=== PATIENT | male | born 1935 | race Caucasian/White ===

== ENCOUNTER 2017-04-22 13:51 | Inpatient (IN) | payer OTHER, MEDICAID, MEDICARE ==
[~2017-04-22] VITALS: Ht 182.9 cm; Wt 75.0 kg
[2017-04-22 13:58] VITALS: BP 146/72; PULSE 115; RESP 18; TEMP 98.2; O2SAT 98
[2017-04-22] MEDS ORDERED: SODIUM CHLOR 0.9% 1000 ML INJ 1,000 ML IV SCH (14:05)
[2017-04-22] MEDS ORDERED: MORPHINE SULFATE 4 MG/ML INJ IV PUSH ONE (14:15)
[2017-04-22] MEDS ORDERED: ONDANSETRON HCL 4 MG/2 ML VIAL IVP ONE (14:15)
[2017-04-22] MEDS ORDERED: DOCU100C PO (14:19)
[2017-04-22] MEDS ORDERED: AMLO5TAB2 PO (14:19)
[2017-04-22] MEDS ORDERED: CILO100T PO (14:19)
[2017-04-22] MEDS ORDERED: LEVE500S PO (14:19)
[2017-04-22] MEDS ORDERED: OMEP40CA2 PO (14:19)
[2017-04-22] MEDS ORDERED: CHOL1TAB42 (14:19)
[2017-04-22] MEDS ORDERED: ZINC220C3 PO (14:19)
[2017-04-22] MEDS ORDERED: GLIP10TA6 PO ×2 (14:19→15:01)
[2017-04-22] MEDS ORDERED: SITA1TAB2 PO (14:19)
[2017-04-22] MEDS ORDERED: FINA5TAB2 PO (14:19)
[2017-04-22] MEDS ORDERED: THIA500T PO (14:19)
[2017-04-22] MEDS ORDERED: LEVO750T3 PO (14:19)
[2017-04-22] MEDS ORDERED: LOVA40TA PO (14:19)
--- NOTE | 2017-04-22 14:24 | PD ---
HPI Chief Complaint: GI Complaint Time Seen by Provider: 14:16 Travel History International Travel<30 days: No Contact w/Intl Traveler<30days: No Traveled to known affect area: No History of Present Illness HPI 81-year-old male that presents to the ED for evaluation of fever, nausea and diarrhea. Also abdominal pain. Patient comes here from a care home. Patient apparently was released from [facility] for a month earlier this month to an ALS secondary to subarachnoid hemorrhage and a right hip fracture that needed surgery. Patient since yesterday has been acting different per staff and they noticed that he had a low-grade fever as well as he was having a lot of nausea and vomiting and diarrhea. Patient was complaining of abdominal pain at the time. He was sent here for evaluation. He denies any recent falls or injuries. He denies significant blood thinners. He does have a history of diabetes. Patient does appear to be aware of the situation and is able to give him most of the history. He has a history of the ulcer to his left heel as well as possibly on his sacral area. Per her report apparently patient does have difficulty swallowing secondary to the trauma but this is chronic. Per his been throwing up which is new. He states that his pain currently 6 out of 10 mainly on the abdomen in the hip. Denies any recent falls or trauma. No other complaints at this time. He does appear to be tachycardic and he was found to have a low-grade fever by ambulance. Patient comes here also with blood work that was recently performed that showed a leukocytosis. PFSH Past Medical History Alzheimer's Disease: Yes Musculoskeletal: Yes (right hip fracture) Neurologic: Yes (subdural hematoma) Social History Alcohol Use: No Tobacco Use: No Substance Use: No Allergies-Medications (Allergen,Severity, Reaction): Coded Allergies: Penicillin (Verified Allergy, Intermediate, RASH, 04/22/17) Reported Meds & Prescriptions Reported Meds & Active Scripts Active Reported Zofran (Ondansetron HCl) 4 Mg Tab 4 Mg PO Q4HR PRN Percocet (Oxycodone-Acetaminophen) 5-325 mg Tab 1 Tab PO Q4H PRN Milk of Magnesia Liq (Magnesium Hydroxide) 400 Mg/5 Ml Susp 30 Ml PO HS PRN Hydralazine HCl 10 Mg Tablet 10 Mg PO Q6HR PRN Enema Disposable (Sodium Phosphates) 1 Gia Gia 1 Applic RECTAL DAILY PRN Dulcolax Supp (Bisacodyl) 10 Mg Supp 10 Mg RECTAL DAILY PRN Guaifenesin DM Liq (Guaifenesin-Dextromethorphan Liq) 10-100 Mg/5 Ml Liq 10 Ml PO Q4H PRN Citroma Liq (Magnesium Citrate) 300 Ml Liq 300 Ml PO DAILY PRN Tylenol (Acetaminophen) 325 Mg Tab 650 Mg PO Q4H PRN Humalog Inj (Insulin Human Lispro) 1,000 Unit/10 Ml Vial 3-12 Units SQ ACHS Sliding Scale: 61-150=0 units, initiate hypoglycemic protocol and call MD, 151-200=3 units, 201-250=5 units, 251-300=8 units, 301-350=10 units, 351-400=12 units, > 400 give 10 units and call Metformin (Metformin HCl) 500 Mg Tab 500 Mg PO TID With meals [Folic Acid 1MG] 1 Mg PO TID Ferrous Sulfate DR (Ferrous Sulfate) 325 Mg Tabdr 325 Mg PO TID Vitamin C (Ascorbic Acid) 250 Mg Tab 500 Mg PO BID Lopid (Gemfibrozil) 600 Mg Tab 600 Mg PO BID Take 30 minutes prior to breakfast and dinner Multi Vitamin Daily (Multiple Vitamin) 1 Tab Tab 1 Tab PO DAILY Glipizide 10 Mg Tab 20 Mg PO DAILY Dextrose 5%-NaCl 0.45% Inj (Dextrose-Sodium Chloride Inj) 5%-0.45% 1,000 Ml Bagp 1,000 Ml IV DAILY Vitamin D3 (Cholecalciferol) 5,000 Unit Cap 10,000 Units PO MONTHLY Docusate Sodium 100 Mg Cap 100 Mg PO Q12HR Cilostazol 100 Mg Tab 100 Mg PO BID Zinc Sulfate 220 Mg Cap 220 Mg PO DAILY Thiamine HCl 500 Mg Tablet 500 Mg PO DAILY Januvia (Sitagliptin Phosphate) 100 Mg Tab 100 Mg PO DAILY Omeprazole 40 Mg Cap 40 Mg PO DAILY Lovastatin 40 Mg Tab 40 Mg PO HS Levofloxacin 750 Mg Tablet 750 Mg PO WEEKLY Glipizide 10 Mg Tab 10 Mg PO HS Finasteride 5 Mg Tab 5 Mg PO DAILY Do not crush. Amlodipine (Amlodipine Besylate) 5 Mg Tab 5 Mg PO DAILY Review of Systems Except as stated in HPI: all other systems reviewed are Neg Physical Exam Narrative GENERAL: SKIN: Warm and dry. HEAD: Atraumatic. Normocephalic. EYES: Pupils equal and round 4 mm reactive to light and accommodation. No scleral icterus. No injection or drainage. ENT: No nasal bleeding or discharge. Mucous membranes pink and moist. Tongue is midline. No uvula deviation. NECK: Trachea midline. No JVD. CARDIOVASCULAR: Regular rate and rhythm. No murmurs, S3, S4. RESPIRATORY: No accessory muscle use. Clear to auscultation. Breath sounds equal bilaterally. GASTROINTESTINAL: Abdomen soft, non-tender, nondistended. Hepatic and splenic margins not palpable. MUSCULOSKELETAL: Extremities without clubbing, cyanosis, or edema. No obvious deformities. Full range of motion of the upper and lower extremities bilaterally. Patient does have some atrophy to the lower legs which appears to be chronic. Patient does have a stage II healing decubitus ulcer on the left heel about 2 cm in diameter. Patient does have some break of the skin on the sacral area which appears likely that the comatose ulcers stage I. Patient does have surgical emile on the right hip with some erythema around the wound but no sign of purulence or mass. NEUROLOGICAL: Awake and alert and oriented 4. No obvious cranial nerve deficits. Motor grossly within normal limits. Five out of 5 muscle strength in the arms and legs. Normal speech. PSYCHIATRIC: Appropriate mood and affect; insight and judgment normal. Data Data Last Documented VS Vital Signs Date Time Temp Pulse Resp B/P Pulse Ox O2 Delivery O2 Flow Rate FiO2 04/22/17 13:58 98.2 115 18 146/72 98 Orders Complete Blood Count With Diff (04/22/17 14:05) Comprehensive Metabolic Panel (04/22/17 14:05) Lipase (04/22/17 14:05) Prothrombin Time / Inr (Pt) (04/22/17 14:05) Act Partial Throm Time (Ptt) (04/22/17 14:05) Urinalysis - C+S If Indicated (04/22/17 14:05) Iv Access Insert/Monitor (04/22/17 14:05) Ecg Monitoring (04/22/17 14:05) Oximetry (04/22/17 14:05) Morphine Inj (Morphine Inj) (04/22/17 14:15) Ondansetron Inj (Zofran Inj) (04/22/17 14:15) Sodium Chlor 0.9% 1000 Ml Inj (Ns 1000 M (04/22/17 14:05) Electrocardiogram (04/22/17 14:05) Lactic Acid Sepsis Protocol (04/22/17 14:05) Blood Culture (04/22/17 14:05) Chest, Single Ap (04/22/17 14:05) C Diff Toxin Pcr (04/22/17 14:19) Vancomycin Inj (Vancomycin Inj) (04/22/17 15:00) Azithromycin Inj (Zithromax Inj) (04/22/17 15:00) Ct Brain W/O Iv Contrast(Rout) (04/22/17 ) Ct Abd/Pel W/O Iv Contrast (04/22/17 ) Sodium Chlor 0.9% 1000 Ml Inj (Ns 1000 M (04/22/17 15:39) Sodium Chlor 0.9% 1000 Ml Inj (Ns 1000 M (04/22/17 15:39) Labs Laboratory Tests Test 04/22/17 04/22/17 14:25 14:30 White Blood Count 21.3 TH/MM3 Red Blood Count 3.18 MIL/MM3 Hemoglobin 8.9 GM/DL Hematocrit 26.0 % Mean Corpuscular Volume 81.8 FL Mean Corpuscular Hemoglobin 28.0 PG Mean Corpuscular Hemoglobin 34.2 % Concent Red Cell Distribution Width 14.5 % Platelet Count 474 TH/MM3 Mean Platelet Volume 6.9 FL Neutrophils (%) (Auto) 84.5 % Lymphocytes (%) (Auto) 5.6 % Monocytes (%) (Auto) 8.0 % Eosinophils (%) (Auto) 1.5 % Basophils (%) (Auto) 0.4 % Neutrophils # (Auto) 18.0 TH/MM3 Lymphocytes # (Auto) 1.2 TH/MM3 Monocytes # (Auto) 1.7 TH/MM3 Eosinophils # (Auto) 0.3 TH/MM3 Basophils # (Auto) 0.1 TH/MM3 CBC Comment AUTO DIFF Differential Comment AUTO DIFF CONFIRMED Platelet Estimate HIGH Platelet Morphology Comment NORMAL Prothrombin Time 12.0 SEC Prothromb Time International 1.1 RATIO Ratio Activated Partial 32.8 SEC Thromboplast Time Sodium Level 144 MEQ/L Potassium Level 3.5 MEQ/L Chloride Level 102 MEQ/L Carbon Dioxide Level 27.0 MEQ/L Anion Gap 15 MEQ/L Blood Urea Nitrogen 36 MG/DL Creatinine 1.88 MG/DL Estimat Glomerular Filtration 35 ML/MIN Rate Random Glucose 52 MG/DL Calcium Level 9.8 MG/DL Total Bilirubin 0.2 MG/DL Aspartate Amino Transf 21 U/L (AST/SGOT) Alanine Aminotransferase 12 U/L (ALT/SGPT) Alkaline Phosphatase 200 U/L Total Protein 7.3 GM/DL Albumin 2.5 GM/DL Lipase 142 U/L Lactic Acid Level 3.0 mmol/L MDM Medical Decision Making Medical Screen Exam Complete: Yes Emergency Medical Condition: Yes Medical Record Reviewed: Yes Interpretation(s) CBC & BMP Diagram 04/22/17 14:25 LTS shows elevated alk phophotase of 200 Last Impressions Chest X-Ray 04/22/17 1405 Signed Impressions: Service Date/Time: Saturday, April 22, 2017 14:28 - CONCLUSION: Underinflated examination with bibasilar airspace opacity representing either atelectasis or mild consolidation. Vinh Lane MD Last Impressions Chest X-Ray 04/22/17 1405 Signed Impressions: Service Date/Time: Saturday, April 22, 2017 14:28 - CONCLUSION: Underinflated examination with bibasilar airspace opacity representing either atelectasis or mild consolidation. Vinh Lane MD Head CT 04/22/17 0000 Signed Impressions: Service Date/Time: Saturday, April 22, 2017 15:30 - CONCLUSION: 1. Subacute subdural hematoma involving the right posterior temporal region measuring 6 mm and the right frontal region measuring 5 mm. 2. Diffuse periventricular and subcortical white matter small vessel ischemic changes bilaterally. 3. Diffuse cerebral atrophy. 4. No acute hemorrhage, midline shift or significant mass effect. Jacoby Bazan MD Abdomen/Pelvis CT 04/22/17 0000 Signed Impressions: Service Date/Time: Saturday, April 22, 2017 15:33 - CONCLUSION: 1. There is mild dilatation of the small bowel suggesting small bowel ileus or partial small bowel obstruction. 2. Uncomplicated colonic diverticulosis. 3. Enlarged prostate. 4. Tiny calcifications within the right kidney consistent with nonobstructing calculi versus vascular calcifications. 5. 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 6. Chronic moderate compression deformity involving the T12 vertebral body. 7. Left adrenal nodule measuring 2.5 x 1.5 cm consistent with probable adrenal adenoma. 8. Hiatal hernia. Jacoby Bazan MD Differential Diagnosis Sepsis versus gastroenteritis versus C. difficile versus acute abdomen versus infected wound Narrative Course 81-year-old male that presents to the ED for evaluation of altered mental status and infection. Patient was properly examined and was found to have signs and symptoms which appear to be consistent with early sepsis. Labs and imaging were ordered. Wound itself from the right hip appears to be okay and do not see any sign of obvious cellulitis. He does have some erythema to the scar itself but I believe that this is likely from the healing process not really infections. He does not appear to be overly tender in the area. Patient is complaining of a lot of nausea and vomiting and diarrhea. No blood. At this time I recommend sepsis workup. Unfortunately patient was not seen here initially for the fracture and the subarachnoid hemorrhage. Patient was initially seen at [facility] or month earlier this month and released to the [facility]. Records will be obtained from [facility] to better evaluate who did the surgery and what else patient has. Labs and imaging shows elevated WBC count with left shift, possible consolidations, dehydration with acute kidney injury, sepsis. CT of the head did show what appears to be a subacute subdural hematoma which was noted on the patient's admission to [facility]. CT of the abdomen showed ileus versus partial small bowel obstruction. Chronic changes noted as well as with kidney stones. Case was discussed in my attending who agrees with plan. Patient will be admitted to the [facility] service secondary to his sepsis. I was able to obtain records from [facility] admission and he was admitted for the right hip surgery after had a fracture as well as a head injury. Patient was seen by Dr. Kaiser and did not for orthopedic surgery during his admission as well as Dr. Messina for neurosurgery with no surgeries to the head but surgeries to the right hip. Patient capable of moving the hip with minimal discomfort. Do not believe that hip is the source of the sepsis and this is likely more from the gastrointestinal disease as well as possible pneumonia. Patient was told this and agrees with plan. Patient will be admitted to the hospital. [facility] Dr. Masterson agrees to admission Procedures EKG Prior to Arrival: No Sepsis Criteria SIRS Criteria (2 or more): Heart rate over 90, WBC > 43512, < 4000 or > 10% bands Sepsis Criteria (SIRS+source): Infect source susp/known Severe Sepsis (+one): Lactate >2 Criteria Outcome: Meets severe sepsis criteria Diagnosis Primary Impression: Sepsis Qualified Code: A41.9 - Sepsis, due to unspecified organism Additional Impressions: Pneumonia Qualified Code: J18.9 - Pneumonia of both lower lobes due to infectious organism Partial small bowel obstruction Acute kidney injury Admitting Information Admitting Physician Requests: Admit Quan Messina April 22, 2017 14:24
--- NOTE | 2017-04-22 14:30 | RADRPT ---
EXAM DATE/TIME: 04/22/2017 14:28 [facility] COMPARISON: No previous studies available for comparison. INDICATIONS : Cough. MEDICAL HISTORY : None. SURGICAL HISTORY : None. ENCOUNTER: Initial ACUITY: 1 day PAIN SCORE: 0/10 LOCATION: Bilateral chest FINDINGS: Underinflated AP view of the chest demonstrates a normal-sized cardiac silhouette. There is mild biba silar opacity. No pleural effusion or pneumothorax is identified. Bones and soft tissues demonstrate no acute finding. CONCLUSION: Underinflated examination with bibasilar airspace opacity representing either atelectasis or mild con solidation. Vinh Lane MD on April 22, 2017 at 14:27 Board Certified Radiologist. This report was verified electronically.
[2017-04-22 14:48] LABS: BASOPHIL # 0.1 TH/MM3 (0-0.2); BASOPHIL % 0.4 % (0.0-2.0); EOSINOPHIL # 0.3 TH/MM3 (0-0.4); EOSINOPHIL % 1.5 % (0.0-4.0); LYMPH % 5.6 % (9.0-44.0); LYMPHOCYTE # 1.2 TH/MM3 (1.0-4.8); MEAN CELL VOLUME 81.8 FL (80.0-100.0); MEAN CORPUSCULAR HGB CONC 34.2 % (32.0-36.0); NEUT % 84.5 % (16.0-70.0); PLATELET COUNT 474 TH/MM3 (150-450); RED BLOOD COUNT 3.18 MIL/MM3 (4.50-5.90); RED CELL DISTRIBUTION WIDTH 14.5 % (11.6-17.2); WHITE BLOOD COUNT 21.3 TH/MM3 (4.0-11.0)
[2017-04-22 14:52] LABS: HEMO FLAGS AUTO DIFF
[2017-04-22] MEDS ORDERED: AZITHROMYCIN INJ 500 MG in SODIUM CHLOR 0.9% 250 ML INJ 250 ML IV ONE (15:00)
[2017-04-22] MEDS ORDERED: VANCOMYCIN INJ 1,000 MG in SODIUM CHLOR 0.9% 250 ML INJ 250 ML IV ONE (15:00)
[2017-04-22] MEDS ORDERED: HUMALOG SQ (15:01)
[2017-04-22] MEDS ORDERED: [UNRECOGNIZED DRUG - CODE] IV (15:01)
[2017-04-22] MEDS ORDERED: ENEMENE5 RECTAL (15:01)
[2017-04-22] MEDS ORDERED: METF500T PO (15:01)
[2017-04-22] MEDS ORDERED: DULC10SU3 RECTAL (15:01)
[2017-04-22] MEDS ORDERED: MILKSUS PO (15:01)
[2017-04-22] MEDS ORDERED: CHOL5000 PO (15:01)
[2017-04-22] MEDS ORDERED: FOLIC ACID 1MG PO (15:01)
[2017-04-22] MEDS ORDERED: GUAISYP7 PO (15:01)
[2017-04-22] MEDS ORDERED: CITRSOL4 PO (15:01)
[2017-04-22] MEDS ORDERED: MULT1TAB46 PO (15:01)
[2017-04-22] MEDS ORDERED: GEMF600 PO (15:01)
[2017-04-22] MEDS ORDERED: ZOFR4TAB PO (15:01)
[2017-04-22] MEDS ORDERED: TYLE325T PO (15:01)
[2017-04-22] MEDS ORDERED: FERR325T2 PO (15:01)
[2017-04-22] MEDS ORDERED: PERC5TAB12 PO (15:01)
[2017-04-22] MEDS ORDERED: HYDR-3798 PO (15:01)
[2017-04-22] MEDS ORDERED: VITA250T3 PO (15:01)
[2017-04-22 15:08] LABS: APTT (PATIENT) 32.8 SEC (24.3-30.1); INTERNATIONAL NORMALIZED RATIO 1.1 RATIO
[2017-04-22 15:18] LABS: ALT (GPT) 12 U/L (12-78); ANION GAP 15 MEQ/L (5-15); AST (GOT) 21 U/L (15-37); BLOOD UREA NITROGEN 36 MG/DL (7-18); CHLORIDE 102 MEQ/L (98-107); GLOMERULAR FILTRATION RATE 35 ML/MIN (>89); PLATELET ESTIMATE SMEAR HIGH (NORMAL); PLATELET MORPHOLOGY NORMAL (NORMAL); POTASSIUM 3.5 MEQ/L (3.5-5.1); SCAN/DIFF AUTO DIFF CONFIRMED; SODIUM (NA) 144 MEQ/L (136-145)
[2017-04-22 15:21] LABS: ALKALINE PHOSPHATASE 200 U/L (45-117); TOTAL BILIRUBIN ADULT 0.2 MG/DL (0.2-1.0)
[2017-04-22 15:30] VITALS: O2SAT 97
[2017-04-22] MEDS ORDERED: SODIUM CHLOR 0.9% 1000 ML INJ 400 ML IV ONE (15:39)
[2017-04-22] MEDS ORDERED: SODIUM CHLOR 0.9% 1000 ML INJ 1,000 ML IV ONE (15:39)
--- NOTE | 2017-04-22 15:44 | RADRPT ---
EXAM DATE/TIME: 04/22/2017 15:30 [facility] COMPARISON: No previous studies available for comparison. INDICATIONS : Altered mental status. RADIATION DOSE: 56.35 CTDIvol (mGy) MEDICAL HISTORY : Non-responsive. SURGICAL HISTORY : Non-responsive. ENCOUNTER: Initial ACUITY: 1 day PAIN SCALE: 0/10 LOCATION: Cranial TECHNIQUE: Multiple contiguous axial images were obtained of the head. Using automated exposure control and adj ustment of the mA and/or kV according to patient size, radiation dose was kept as low as reasonably a chievable to obtain optimal diagnostic quality images. FINDINGS: There is evidence of a subacute subdural hematoma along the right posterior temporal region measuring 6 mm and right frontal region measuring 5 mm. No acute components are identified. Underlying diffu se cerebral atrophy is noted. Moderate periventricular and subcortical white matter small vessel isc hemic changes are noted bilaterally. There is no midline shift. CONCLUSION: 1. Subacute subdural hematoma involving the right posterior temporal region measuring 6 mm and the r ight frontal region measuring 5 mm. 2. Diffuse periventricular and subcortical white matter small vessel ischemic changes bilaterally. 3. Diffuse cerebral atrophy. 4. No acute hemorrhage, midline shift or significant mass effect. Jacoby Bazan MD on April 22, 2017 at 15:35 Board Certified Radiologist. This report was verified electronically.
[2017-04-22 16:05] VITALS: BP 166/75; PULSE 98; RESP 18; TEMP 98.3; O2SAT 95
--- NOTE | 2017-04-22 16:05 | RADRPT ---
EXAM DATE/TIME: 04/22/2017 15:33 [facility] COMPARISON: No previous studies available for comparison. INDICATIONS : Abdomen pain. ORAL CONTRAST: No oral contrast ingested. RADIATION DOSE: 9.96 CTDIvol (mGy) MEDICAL HISTORY : Non-responsive. SURGICAL HISTORY : Non-responsive. ENCOUNTER: Initial ACUITY: 1 day PAIN SCALE: 3/10 LOCATION: Bilateral abdomen. TECHNIQUE: Volumetric scanning of the abdomen and pelvis was performed. Using automated exposure control and ad justment of the mA and/or kV according to patient size, radiation dose was kept as low as reasonably achievable to obtain optimal diagnostic quality images. FINDINGS: Evaluation of the solid organs of the abdomen is limited by the lack of intravenous contrast. There is no acute obstructive uropathy. Tiny calcifications are noted within the right kidney consistent w ith nonobstructing calculi or vascular calcifications. The patient is status post cholecystectomy. A small hiatal hernia is noted. Aortobifemoral bypass graft is noted. Inguinal portions of both byp ass grafts (right more prominent than left) consistent with possible seromas. The collection on the right measures 5.1 cm in size. The prostate gland is enlarged and demonstrates calcifications. Urin aleta bladder diverticulum is noted anteriorly. Uncomplicated sigmoid diverticulosis is noted. No acu te diverticulitis is noted. There is a 2.5 x 1.5 cm left adrenal nodule consistent with probable murtaza noma. There is moderate compression deformity involving T12. Degenerative changes are noted through out the lumbar and lower thoracic spine. Hardware is noted within the proximal femurs bilaterally. Mild dilatation of the small bowel is noted suggesting small bowel ileus or partial small bowel obstr uction. Clinical correlation is recommended. CONCLUSION: 1. There is mild dilatation of the small bowel suggesting small bowel ileus or partial small bowel o bstruction. 2. Uncomplicated colonic diverticulosis. 3. Enlarged prostate. 4. Tiny calcifications within the right kidney consistent with nonobstructing calculi versus vascula r calcifications. 5. 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 6. Chronic moderate compression deformity involving the T12 vertebral body. 7. Left adrenal nodule measuring 2.5 x 1.5 cm consistent with probable adrenal adenoma. 8. Hiatal hernia. Jacoby Bazan MD on April 22, 2017 at 15:49 Board Certified Radiologist. This report was verified electronically.
[2017-04-22 16:41] LABS: LACTIC ACID GHOST NOT REPORTABLE
[2017-04-22] MEDS: SODIUM CHLOR 0.9% 1000 ML INJ 1,000 ML IV SCH (17:00)
[2017-04-22] MEDS ORDERED: BISACODYL 10 MG SUPP RECTAL PRN (17:15)
[2017-04-22] MEDS ORDERED: ONDANSETRON HCL 4 MG/2 ML VIAL IVP PRN (17:15)
[2017-04-22] MEDS ORDERED: SODIUM CHLORIDE 0.9% FLUSH 10 ML FLUSH IV FLUSH PRN (17:15)
[2017-04-22] MEDS ORDERED: SENNOSIDES 8.6 MG TAB PO PRN (17:15)
[2017-04-22] MEDS ORDERED: MAGNESIUM HYDROXIDE SUSP 30 ML CUP PO PRN (17:15)
[2017-04-22] MEDS ORDERED: LACTULOSE SYRUP 20 GM/30 ML CUP PO PRN (17:15)
[2017-04-22] MEDS ORDERED: guaiFENesin/DEXTROMETHORPHAN 200 MG/20 MG/10 ML CUP PO PRN (17:15)
[2017-04-22] MEDS ORDERED: ACETAMINOPHEN 325 MG TAB PO PRN (17:15)
[2017-04-22] MEDS ORDERED: GLUCAGON 1 MG/ML VIAL OTHER PRN (17:30)
[2017-04-22] MEDS ORDERED: DEXTROSE 50% IN WATER 50 ML VIAL(D50) IV PRN (17:30)
[2017-04-22] MEDS: FERROUS SULFATE 325 MG (65 MG ELEMENTAL IRON) TAB PO SCH (18:00)
[2017-04-22] MEDS: ENOXAPARIN SODIUM 40 MG/0.4 ML SYRINGE SQ SCH (18:00)
--- NOTE | 2017-04-22 18:09 | HHI.HP ---
HPI Service [facility] Primary Care Physician Non-Staff Admission Diagnosis sepsis, pneumonia, ileus vs partial bowel obstruction Diagnoses: Chief Complaint: nausea/vomiting, altered mental status Travel History International Travel<30 Days: No Contact w/Intl Traveler <30 Da: No Traveled to Known Affected Are: No History of Present Illness Very pleasant 81 yo male from [facility] with PMH of HTN, DM, GERD, recent subdural hematoma and hip replacement surgery presents to the ED for evaluation of fever , nausea and diarrhea. Also complaints of abdominal pain. Patient comes here from a skilled nursing. Patient apparently was released from [facility] for a month earlier this month to an ALS secondary to subarachnoid hemorrhage and a right hip fracture that needed surgery. Patient since yesterday has been acting different per staff and they noticed that he had a low-grade fever as well as he was having a lot of nausea and vomiting and diarrhea. Patient was complaining of abdominal pain at the time. He was sent here for evaluation. He denies any recent falls or injuries. He denies significant blood thinners. He does have a history of diabetes. Patient does appear to be aware of the situation and is able to give him most of the history. He has a history of the ulcer to his left heel as well as possibly on his sacral area. Per her report apparently patient does have difficulty swallowing secondary to the trauma but this is chronic. Per his been throwing up which is new. He states that his pain currently 6 out of 10 mainly on the abdomen in the hip. Denies any recent falls or trauma. No other complaints at this time. He does appear to be tachycardic and he was found to have a low-grade fever by ambulance. Patient comes here also with blood work that was recently performed that showed a leukocytosis. Review of Systems ROS Limitations: Clinical Condition, Altered Mental Status Except as stated in HPI: all other systems reviewed are Neg Past Family Social History Past Medical History HTN Subdural hematoma DM HLD GERD Past Surgical History Subdural hematoma Hip replacement Reported Medications Reported Meds & Active Scripts Active Reported Zofran (Ondansetron HCl) 4 Mg Tab 4 Mg PO Q4HR PRN Percocet (Oxycodone-Acetaminophen) 5-325 mg Tab 1 Tab PO Q4H PRN Milk of Magnesia Liq (Magnesium Hydroxide) 400 Mg/5 Ml Susp 30 Ml PO HS PRN Hydralazine HCl 10 Mg Tablet 10 Mg PO Q6HR PRN Enema Disposable (Sodium Phosphates) 1 Gia Gia 1 Applic RECTAL DAILY PRN Dulcolax Supp (Bisacodyl) 10 Mg Supp 10 Mg RECTAL DAILY PRN Guaifenesin DM Liq (Guaifenesin-Dextromethorphan Liq) 10-100 Mg/5 Ml Liq 10 Ml PO Q4H PRN Citroma Liq (Magnesium Citrate) 300 Ml Liq 300 Ml PO DAILY PRN Tylenol (Acetaminophen) 325 Mg Tab 650 Mg PO Q4H PRN Humalog Inj (Insulin Human Lispro) 1,000 Unit/10 Ml Vial 3-12 Units SQ ACHS Sliding Scale: 61-150=0 units, initiate hypoglycemic protocol and call MD, 151-200=3 units, 201-250=5 units, 251-300=8 units, 301-350=10 units, 351-400=12 units, > 400 give 10 units and call Metformin (Metformin HCl) 500 Mg Tab 500 Mg PO TID With meals [Folic Acid 1MG] 1 Mg PO TID Ferrous Sulfate DR (Ferrous Sulfate) 325 Mg Tabdr 325 Mg PO TID Vitamin C (Ascorbic Acid) 250 Mg Tab 500 Mg PO BID Lopid (Gemfibrozil) 600 Mg Tab 600 Mg PO BID Take 30 minutes prior to breakfast and dinner Multi Vitamin Daily (Multiple Vitamin) 1 Tab Tab 1 Tab PO DAILY Glipizide 10 Mg Tab 20 Mg PO DAILY Dextrose 5%-NaCl 0.45% Inj (Dextrose-Sodium Chloride Inj) 5%-0.45% 1,000 Ml Bagp 1,000 Ml IV DAILY Vitamin D3 (Cholecalciferol) 5,000 Unit Cap 10,000 Units PO MONTHLY Docusate Sodium 100 Mg Cap 100 Mg PO Q12HR Cilostazol 100 Mg Tab 100 Mg PO BID Zinc Sulfate 220 Mg Cap 220 Mg PO DAILY Thiamine HCl 500 Mg Tablet 500 Mg PO DAILY Januvia (Sitagliptin Phosphate) 100 Mg Tab 100 Mg PO DAILY Omeprazole 40 Mg Cap 40 Mg PO DAILY Lovastatin 40 Mg Tab 40 Mg PO HS Levofloxacin 750 Mg Tablet 750 Mg PO WEEKLY Glipizide 10 Mg Tab 10 Mg PO HS Finasteride 5 Mg Tab 5 Mg PO DAILY Do not crush. Amlodipine (Amlodipine Besylate) 5 Mg Tab 5 Mg PO DAILY Allergies: Coded Allergies: Penicillin (Verified Allergy, Intermediate, RASH, 04/22/17) Family History Diabetes and HTN runs in family Social History Denies EtOH use, tobacco use or illicit drug use Physical Exam Vital Signs Vital Signs Date Time Temp Pulse Resp B/P Pulse Ox O2 Delivery O2 Flow Rate FiO2 04/22/17 15:30 97 Room Air 04/22/17 13:58 98.2 115 18 146/72 98 Physical Exam GENERAL: This is a well-nourished, well-developed patient, in no apparent distress. SKIN: No rashes, ecchymoses or lesions. Cool and dry. HEAD: Atraumatic. Normocephalic. No temporal or scalp tenderness. EYES: Pupils equal round and reactive. Extraocular motions intact. No scleral icterus. No injection or drainage. ENT: Nose without bleeding, purulent drainage or septal hematoma. Throat without erythema, tonsillar hypertrophy or exudate. Uvula midline. Airway patent. NECK: Trachea midline. No JVD or lymphadenopathy. Supple, nontender, no meningeal signs. CARDIOVASCULAR: Regular rate and rhythm without murmurs, gallops, or rubs. RESPIRATORY: Clear to auscultation. Breath sounds equal bilaterally. No wheezes , rales, or rhonchi. GASTROINTESTINAL: Abdomen soft, non-tender, nondistended. No hepato-splenomegaly , or palpable masses. No guarding. MUSCULOSKELETAL: Extremities without clubbing, cyanosis, or edema. No joint tenderness, effusion, or edema noted. No calf tenderness. Negative Homans sign bilaterally. NEUROLOGICAL: Awake and alert. Cranial nerves II through XII intact. Motor and sensory grossly within normal limits. Five out of 5 muscle strength in all muscle groups. Normal speech. Laboratory Laboratory Tests Test 04/22/17 04/22/17 04/22/17 14:25 14:30 17:20 White Blood Count 21.3 Red Blood Count 3.18 Hemoglobin 8.9 Hematocrit 26.0 Mean Corpuscular Volume 81.8 Mean Corpuscular Hemoglobin 28.0 Mean Corpuscular Hemoglobin 34.2 Concent Red Cell Distribution Width 14.5 Platelet Count 474 Mean Platelet Volume 6.9 Neutrophils (%) (Auto) 84.5 Lymphocytes (%) (Auto) 5.6 Monocytes (%) (Auto) 8.0 Eosinophils (%) (Auto) 1.5 Basophils (%) (Auto) 0.4 Neutrophils # (Auto) 18.0 Lymphocytes # (Auto) 1.2 Monocytes # (Auto) 1.7 Eosinophils # (Auto) 0.3 Basophils # (Auto) 0.1 CBC Comment AUTO DIFF Differential Comment AUTO DIFF CONFIRMED Platelet Estimate HIGH Platelet Morphology Comment NORMAL Prothrombin Time 12.0 Prothromb Time International 1.1 Ratio Activated Partial 32.8 Thromboplast Time Sodium Level 144 Potassium Level 3.5 Chloride Level 102 Carbon Dioxide Level 27.0 Anion Gap 15 Blood Urea Nitrogen 36 Creatinine 1.88 Estimat Glomerular Filtration 35 Rate Random Glucose 52 Calcium Level 9.8 Total Bilirubin 0.2 Aspartate Amino Transf 21 (AST/SGOT) Alanine Aminotransferase 12 (ALT/SGPT) Alkaline Phosphatase 200 Total Protein 7.3 Albumin 2.5 Lipase 142 Lactic Acid Level 3.0 2.0 Date/Time Procedure Status Source Growth 04/22/17 14:30 Aerobic Blood Culture Received Blood Peripheral Pending 04/22/17 14:30 Anaerobic Blood Culture Received Blood Peripheral Pending Result Diagram: 04/22/17 1425 04/22/17 1425 Assessment and Plan Assessment and Plan Very pleasant 81 yo male from [place] with PMH of HTN, DM, GERD, recent subdural hematoma and hip replacement surgery with: Severe sepsis (leukocytosis, tachycardia, LA> 2 , [place], encephalopathy, source bilat PNA, poss ?GI source- gastroenteritis) on admission. Penicillin allergy. Small Anjana Obstruction [place] Sacral wound present on admission. Wound care consult. Received 3L bolus NS in the ED. Monitor BP. Continue IOVF Blood cx pending. Urine cx Received vancomycin and azithromycin IV in the ED. Patient is allergic to penicillin CXR reviewed bibasilar infiltrates. Continue vancomycin IV and azithromycin IV. Add ciprofloxacin and flagyl IV for GI coverage Consult ID specialist Consult gen surg Repeat LA Monitor CBC and BMP. Monitor WBC, monitor closely kidney indices HTN, DM, GERD, recent subdural hematoma and hip replacement surgery. appears stable at this time. Monitor VS. Monitor clinically. CT in the ED reviewed, no acute changes. DVT ppx lovenox, SCD/TEDs Discussed Condition With patient, nurse, ED PA/physician Physician Certification 2 Midnight Certification Type: Admission for Inpatient Services Order for Inpatient Services The services are ordered in accordance with Medicare regulations or non- Medicare payer requirements, as applicable. In the case of services not specified as inpatient-only, they are appropriately provided as inpatient services in accordance with the 2-midnight benchmark. Estimated LOS (days): 3 days is the estimated time the patient will need to remain in the hospital, assuming treatment plan goals are met and no additional complications. Post-Hospital Plan: Not yet determined Sahara Masterson MD April 22, 2017 18:09
[2017-04-22 18:15] VITALS: BP 170/71; PULSE 94; RESP 20; O2SAT 94
[2017-04-22 18:22] LABS: BLOOD, URINE NEG (NEG); COMMENT (UR) CULT NOT INDICATED; CULTURE IF INDICATED CULT NOT INDICATED; GLUCOSE,URINE NEG (NEG); KETONE, URINE NEG (NEG); MUCUS URINE FEW /lpf (OCC); NITRITE,URINE NEG (NEG); PH, URINE 5.5 (5.0-8.5); SQUAMOUS EPITHELIAL CELL URINE <1 /hpf (0-5); URINE COLOR YELLOW (YELLW/STRAW)
[2017-04-22 20:00] VITALS: BP 170/73; PULSE 95; RESP 16; TEMP 97.2; O2SAT 92
[2017-04-22] MEDS: DOCUSATE SODIUM 50 MG/SENNA 8.6 MG TAB PO SCH (20:44)
[2017-04-22] MEDS: ASCORBIC ACID 500 MG TAB PO SCH (20:44)
[2017-04-22] MEDS: INSULIN ASPART SUPPLEMENTAL SCALE SQ SCH (20:53)
[2017-04-22] MEDS: metroNIDAZOLE 500 MG INJ 100 ML IV SCH (20:55)
[2017-04-22] MEDS: PRAVASTATIN SOD 40 MG TAB PO SCH (21:00)
[2017-04-22] MEDS: oxyCODONE/ACETAMINOPHEN 5 MG/325 MG TAB PO PRN (21:02)
[2017-04-22] MEDS: CILOSTAZOL 100 MG TAB PO SCH (22:26)
[2017-04-22] MEDS: CIPROFLOXACIN 400 MG PREMIX 200 ML IV SCH (22:29)
--- NOTE | 2017-04-22 22:44 | MB ---
cc: JANICE LAYTON DATE OF CONSULTATION 04/22/[address] Masterson REASON FOR CONSULTATION Ileus versus small-bowel obstruction. HISTORY OF PRESENT ILLNESS The patient is an 81-year-old male who was brought to [facility] from [place] [facility] facility where he was recovering from a subdural hematoma and hip surgery. The patient apparently at that time developed nausea, vomiting and diarrhea for several days that was worsening and the patient became more confused and weak. The patient has a past medical history including hypertension, diabetes mellitus, gastroesophageal reflux disease. The patient was admitted to [facility]. Upon evaluation underwent a CT scan which did show some diffuse mild dilation of small bowel loops concerning for early obstruction versus ileus. General surgery was consulted. REVIEW OF SYSTEMS Unable to obtain due to the patient being a poor historian. His past history obtained from the chart. PAST MEDICAL HISTORY Hypertension, subdural hematoma, diabetes mellitus, hyperlipidemia, gastroesophageal reflux disease. PAST SURGERIES Hip replacement. ALLERGIES PENICILLIN. SOCIAL HISTORY The [facility]. SOCIAL HISTORY Noncontributory. MEDICATIONS Medications 1. Insulin. 2. Metformin. 3. multiple vitamins and supplements. 4. Levofloxacin. 5. Glipizide. LABORATORY EVALUATION White blood cell count 21.3, INR 1.1, hemoglobin 8.9, creatinine 1.88, albumin 2.5. IMAGING STUDIES As reviewed as above. PHYSICAL EXAMINATION GENERAL: The patient is an 81-year-old male, no acute distress. VITAL SIGNS: Temperature 97.2 degrees, blood pressure 170/73, heart rate 95. O2 saturation 92%. HEENT: Normocephalic, atraumatic. Pupils are round, reactive to accommodation and light. Sclerae is anicteric. Mucous membranes are moist. NECK: Neck is supple. No JVD. LUNGS: Clear to auscultation bilaterally. Nonlabored breathing pattern. HEART: Regular rate and rhythm. ABDOMEN: Soft, scaphoid, nondistended, nontender to palpation. No organomegaly. No ascites. No hernias. BACK: No CVA tenderness. EXTREMITIES: No clubbing, cyanosis or edema. NEUROLOGIC: The patient is awake and alert, a poor historian but answers yes or no questions reliably. Nonfocal peripheral exam. ASSESSMENT/PLAN Patient is an 81-year-old male with nausea, vomiting and diarrhea per his report and the previous record. The imaging reviewed by myself and I feel that the patient has diffuse mild dilation of the GI tract much more consistently correlates to a gastroenteritis or physiologic abnormality and not a mechanical type process. The patient has no significant past surgical history on his abdomen as well. At this point in time this patient has a very mild ileus. We will recommend continued supportive care and investigation to his underlying illness and do not plan any surgical intervention. We will follow along with the patient. Thank you very much for this consultation. MD MALENA Ardon/EULOGIO /10:08 PM /10:30 PM
[2017-04-23] VITALS (7 sets, daily range): BP systolic 147–168; BP diastolic 66–85; PULSE 60–95; RESP 16–18; TEMP 96.3–98.9; O2SAT 90–97
[2017-04-23] MEDS: SODIUM CHLOR 0.9% 1000 ML INJ 1,000 ML IV SCH ×3 (03:31→20:34)
[2017-04-23] MEDS: metroNIDAZOLE 500 MG INJ 100 ML IV SCH ×4 (03:31→20:34)
[2017-04-23] MEDS: oxyCODONE/ACETAMINOPHEN 5 MG/325 MG TAB PO PRN (05:18)
[2017-04-23] MEDS: INSULIN ASPART SUPPLEMENTAL SCALE SQ SCH ×4 (05:29→21:00)
[2017-04-23] MEDS: CIPROFLOXACIN 400 MG PREMIX 200 ML IV SCH ×4 (07:21→20:34)
[2017-04-23] MEDS: FERROUS SULFATE 325 MG (65 MG ELEMENTAL IRON) TAB PO SCH ×3 (07:46→17:29)
[2017-04-23] MEDS: ASCORBIC ACID 500 MG TAB PO SCH ×2 (07:46→20:34)
[2017-04-23] MEDS: MULTIVITAMIN TAB PO SCH (07:46)
[2017-04-23] MEDS: amLODIPine BESYLATE 5 MG TAB PO SCH (07:46)
[2017-04-23] MEDS: DOCUSATE SODIUM 50 MG/SENNA 8.6 MG TAB PO SCH ×2 (07:47→20:34)
[2017-04-23] MEDS: FINASTERIDE 5 MG TAB PO SCH (07:47)
[2017-04-23] MEDS: PANTOPRAZOLE SOD 40 MG DELAYED RELEASE TAB PO SCH (07:47)
[2017-04-23] MEDS ORDERED: THIAMINE HCL 500 MG PO SCH (09:00)
[2017-04-23] MEDS ORDERED: CHOLECALCIFEROL (VIT D3) 5000 UNIT CAP PO SCH (09:00)
[2017-04-23] MEDS: CILOSTAZOL 100 MG TAB PO SCH ×2 (09:09→20:34)
[2017-04-23] MEDS: hydrALAZINE HCL 10 MG TAB PO PRN (11:03)
--- NOTE | 2017-04-23 12:58 | HHI.PR ---
Subjective Remarks In bed, says he feel his skin is itchy. he does have very dry skin. There is no rash. Says he feels somehow improved since yesterday. No n/v/d/c. Denies fever or chills. Feels very weak. Has pain in his buttock wound, but says he feels much better after wound care. Wound care nurse eval patient. Objective Vitals Vital Signs Date Time Temp Pulse Resp B/P Pulse Ox O2 Delivery O2 Flow Rate FiO2 04/23/17 12:00 96.5 86 18 168/71 94 04/23/17 08:00 96.3 83 18 163/74 94 04/23/17 04:00 97.8 60 16 153/69 93 04/23/17 00:00 98.1 82 18 147/66 92 04/22/17 20:00 97.2 95 16 170/73 92 04/22/17 18:15 94 20 170/71 94 Room Air 04/22/17 16:05 98.3 98 18 166/75 95 04/22/17 15:30 97 Room Air 04/22/17 13:58 98.2 115 18 146/72 98 I/O 04/22/17 04/22/17 04/22/17 04/23/17 04/23/17 04/23/17 07:00 15:00 23:00 07:00 15:00 23:00 Intake Total 120 ml 480 ml Output Total 450 ml 200 ml Balance -330 ml 280 ml Intake Oral 120 ml 480 ml Output Urine Total 450 ml 200 ml # Voids 1 # Bowel Movements 0 0 Result Diagram: 04/22/17 1425 04/22/17 1425 Imaging Last Impressions Chest X-Ray 04/22/17 1405 Signed Impressions: Service Date/Time: Saturday, April 22, 2017 14:28 - CONCLUSION: Underinflated examination with bibasilar airspace opacity representing either atelectasis or mild consolidation. Vinh Lane MD Head CT 04/22/17 0000 Signed Impressions: Service Date/Time: Saturday, April 22, 2017 15:30 - CONCLUSION: 1. Subacute subdural hematoma involving the right posterior temporal region measuring 6 mm and the right frontal region measuring 5 mm. 2. Diffuse periventricular and subcortical white matter small vessel ischemic changes bilaterally. 3. Diffuse cerebral atrophy. 4. No acute hemorrhage, midline shift or significant mass effect. Jacoby Bazan MD Abdomen/Pelvis CT 04/22/17 0000 Signed Impressions: Service Date/Time: Saturday, April 22, 2017 15:33 - CONCLUSION: 1. There is mild dilatation of the small bowel suggesting small bowel ileus or partial small bowel obstruction. 2. Uncomplicated colonic diverticulosis. 3. Enlarged prostate. 4. Tiny calcifications within the right kidney consistent with nonobstructing calculi versus vascular calcifications. 5. 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 6. Chronic moderate compression deformity involving the T12 vertebral body. 7. Left adrenal nodule measuring 2.5 x 1.5 cm consistent with probable adrenal adenoma. 8. Hiatal hernia. Jacoby Bazan MD Objective Remarks GENERAL: This is a well-nourished, well-developed patient, in no apparent distress. SKIN: Pressure sacral wound present on admission. Bilateral heel wounds present on admission. No rashes, ecchymoses or lesions. Cool and dry. HEAD: Atraumatic. Normocephalic. No temporal or scalp tenderness. EYES: Pupils equal round and reactive. Extraocular motions intact. No scleral icterus. No injection or drainage. ENT: Nose without bleeding, purulent drainage or septal hematoma. Throat without erythema, tonsillar hypertrophy or exudate. Uvula midline. Airway patent. NECK: Trachea midline. No JVD or lymphadenopathy. Supple, nontender, no meningeal signs. CARDIOVASCULAR: Regular rate and rhythm without murmurs, gallops, or rubs. RESPIRATORY: Clear to auscultation. Breath sounds equal bilaterally. No wheezes , rales, or rhonchi. GASTROINTESTINAL: Abdomen soft, non-tender, nondistended. No hepato-splenomegaly , or palpable masses. No guarding. MUSCULOSKELETAL: Extremities without clubbing, cyanosis, or edema. No joint tenderness, effusion, or edema noted. No calf tenderness. Negative Homans sign bilaterally. NEUROLOGICAL: Awake and alert. Cranial nerves II through XII intact. Motor and sensory grossly within normal limits. Five out of 5 muscle strength in all muscle groups. Normal speech. A/P Assessment and Plan Very pleasant 81 yo male from [place] with PMH of HTN, DM, GERD, recent subdural hematoma and hip replacement surgery with: Severe sepsis (leukocytosis, tachycardia, LA> 2 , [place], encephalopathy, source bilat PNA, GI source- gastroenteritis) on admission. Penicillin allergy. Poss Partial Small Anjana Obstruction [place] Sacral wound present on admission. Bilateral heel wounds present on admission. Wound care consult, appreciate recommendations. Apply silprovidone-iodine bid to bilat heel wounds bid and live open to air. Bilateral heel raiser boots . Specialty bed . Received 3L bolus NS in the ED. Monitor BP. Continue IOVF Blood cx pending. Urine cx Received vancomycin and azithromycin IV in the ED. Patient is allergic to penicillin CXR reviewed bibasilar infiltrates. Continue vancomycin IV and azithromycin IV. Add ciprofloxacin and flagyl IV for GI coverage Consult ID specialist Consult gen surg Repeat LA back to normal Monitor CBC and BMP. Monitor WBC, monitor closely kidney indices HTN, DM, GERD, recent subdural hematoma and hip replacement surgery. appears stable at this time. Monitor VS. Monitor clinically. CT in the ED reviewed, no acute changes. DVT ppx lovenox, SCD/TEDs Discussed Condition With patient, nurse Sahara Masterson MD April 23, 2017 12:58
[2017-04-23 14:09] LABS: BASOPHIL # 0.1 TH/MM3 (0-0.2); BASOPHIL % 0.5 % (0.0-2.0); EOSINOPHIL # 0.4 TH/MM3 (0-0.4); EOSINOPHIL % 2.9 % (0.0-4.0); HEMATOCRIT 22.9 % (39.0-51.0); LYMPH % 6.8 % (9.0-44.0); MEAN CELL VOLUME 82.3 FL (80.0-100.0); MEAN CORPUSCULAR HGB CONC 32.8 % (32.0-36.0); MONO % 8.1 % (0.0-8.0); NEUT % 81.7 % (16.0-70.0); PLATELET COUNT 358 TH/MM3 (150-450); RED BLOOD COUNT 2.79 MIL/MM3 (4.50-5.90); RED CELL DISTRIBUTION WIDTH 14.5 % (11.6-17.2); WHITE BLOOD COUNT 14.6 TH/MM3 (4.0-11.0)
[2017-04-23 14:10] LABS: HEMO FLAGS AUTO DIFF
[2017-04-23 14:38] LABS: BICARBONATE 24.5 MEQ/L (21.0-32.0); POTASSIUM 3.7 MEQ/L (3.5-5.1)
[2017-04-23 14:48] LABS: PLATELET ESTIMATE SMEAR HIGH (NORMAL); PLATELET MORPHOLOGY NORMAL (NORMAL); SCAN/DIFF AUTO DIFF CONFIRMED
--- NOTE | 2017-04-23 15:18 | MB ---
cc: STEVEN SANTIAGO MD DATE OF CONSULTATION: 04/23/[address] Masterson. REASON FOR CONSULTATION Sepsis, PENICILLIN ALLERGY. HISTORY OF PRESENT ILLNESS This is a 81-year-old white male who presented to the emergency department on 04/22 with nausea and vomiting and diarrhea. The patient reportedly was complaining of abdominal pain as well. He is a resident at the long-term facility. The patient had a recent right hip fracture and was treated surgically for that. He was evaluated in the emergency department for the above symptoms and was found to have heart rate of 115 and his white count was elevated at 21.3 and lactic acid level elevated at 3.0. The patient also has chronic kidney disease. The patient was admitted to the hospital after he had evaluation including CT of the abdomen which showed mild dilatation of the small bowel suggesting small-bowel ileus or partial small-bowel obstruction. He also had a chest x-ray that showed bibasilar air space opacity representing either atelectasis or mild consolidation. The patient had loose stool which is not watery. He had one bout of loose stool today. He is awake and alert and tells me that he feels okay. He was given a dose of Levaquin on 04/20 at the nursing facility. The indication for the Levaquin is not reported on the long-term form. The patient was discharged to long-term facility on 03/28/2017. The patient was also diagnosed with a right subdural hematoma early this month while at [facility]. The patient is afebrile. PAST MEDICAL HISTORY 1. Hypertension. 2. Diabetes mellitus. 3. Gastroesophageal reflux disease. 4. Subdural hematoma. 5. Right hip replacement. 6. Cholecystectomy. ALLERGIES PENICILLIN. MEDICATIONS 1. Ciprofloxacin. 2. Metronidazole. 3. Insulin. 4. Vitamin C. 5. Pravachol. 6. Pletal. 7. Diane-Colace. 8. Protonix. 9. Theragran. 10. Proscar. 11. Norvasc. 12. Zofran. SOCIAL HISTORY No tobacco, alcohol or illicit drugs. FAMILY HISTORY Noncontributory. REVIEW OF SYSTEMS Pertinent as mentioned above in history of present illness. PHYSICAL EXAMINATION GENERAL: This is a slender male who is in no acute distress. He is awake and he is alert and oriented. VITAL SIGNS: Include temperature 96.5, BP 168/71, respirations 18, heart rate 86. HEENT: Extraocular movements grossly intact, pupils reactive to light. No icterus. Oropharynx moist mucosa without lesions. NECK: Supple without adenopathy. LUNGS: Clear to auscultation with decreased breath sounds at the bases. HEART: Regular rate and rhythm without murmurs, rubs or gallops. ABDOMEN: Bowel sounds present, soft, nontender. No masses palpable. RECTAL: Not performed. EXTREMITIES: No clubbing or cyanosis or edema. Left hip incision lateral has emile in place and is clean and has no erythema or drainage. NEURO: Nonfocal. SKIN: No rash. PSYCHE: The patient is calm and cooperative. LABORATORY DATA WBC 21.3, platelet count 474, hemoglobin 8.9, 84% neutrophils, creatinine 1.88, BUN 36, sodium 144, AST 21, ALT 12, alk phos 200. Urinalysis unremarkable. IMPRESSION 1. Sepsis based on presenting features of leukocytosis, tachycardia, elevated lactic acid level. 2. Probable ileus. 3. Possible gastroenteritis. 4. Chronic kidney disease stage III. 5. Abnormal chest x-ray. Possible atelectasis versus pneumonia. RECOMMENDATIONS 1. Continue ciprofloxacin. 2. Continue metronidazole. 3. Obtain stool samples for ova and parasites. 4. Monitor temperature. 5. Monitor white blood cell count. 6. Monitor clinical status while on antibiotics. The patient had received 7 days of clindamycin which was terminated on 03/28. If he does have continued diarrhea we should also obtain stool for C-difficile toxin testing as well. Thank you for this consultation. Steven Santiago MD FD/LON /12:52 PM /2:54 PM ISABELLA
[2017-04-23] MEDS: HYDROmorphone HCL PF 1 MG/ML VIAL IV PUSH PRN ×2 (15:30→22:05)
[2017-04-23] MEDS: ENOXAPARIN SODIUM 40 MG/0.4 ML SYRINGE SQ SCH (17:29)
[2017-04-23] MEDS: PRAVASTATIN SOD 40 MG TAB PO SCH (20:34)
[2017-04-23 23:05] LABS: C. DIFF EPI 027 PRESUMPTIVE NEGATIVE (NEGATIVE); C. DIFF TOXIN PCR NEGATIVE (NEGATIVE)
[2017-04-24] VITALS (7 sets, daily range): BP systolic 143–172; BP diastolic 69–80; PULSE 74–91; RESP 16–20; TEMP 96.9–98.2; O2SAT 93–98
[2017-04-24] MEDS: CIPROFLOXACIN 400 MG PREMIX 200 ML IV SCH ×2 (03:43→11:11)
[2017-04-24] MEDS: metroNIDAZOLE 500 MG INJ 100 ML IV SCH ×2 (03:43→09:24)
[2017-04-24] MEDS: HYDROmorphone HCL PF 1 MG/ML VIAL IV PUSH PRN (05:17)
[2017-04-24 05:46] LABS: AUTOMATED NEUTROPHIL # 10.7 TH/MM3 (1.8-7.7); BASOPHIL # 0.1 TH/MM3 (0-0.2); BASOPHIL % 0.6 % (0.0-2.0); EOSINOPHIL # 0.5 TH/MM3 (0-0.4); EOSINOPHIL % 3.4 % (0.0-4.0); HEMATOCRIT 22.7 % (39.0-51.0); LYMPH % 7.4 % (9.0-44.0); MEAN CELL VOLUME 81.6 FL (80.0-100.0); MEAN CORPUSCULAR HEMOGLOBIN 27.5 PG (27.0-34.0); MEAN CORPUSCULAR HGB CONC 33.6 % (32.0-36.0); MONO % 9.1 % (0.0-8.0); NEUT % 79.5 % (16.0-70.0); PLATELET COUNT 377 TH/MM3 (150-450); RED BLOOD COUNT 2.78 MIL/MM3 (4.50-5.90); RED CELL DISTRIBUTION WIDTH 14.6 % (11.6-17.2); WHITE BLOOD COUNT 13.5 TH/MM3 (4.0-11.0)
[2017-04-24 05:51] LABS: BICARBONATE 25.2 MEQ/L (21.0-32.0); POTASSIUM 3.7 MEQ/L (3.5-5.1)
[2017-04-24 05:52] LABS: HEMO FLAGS AUTO DIFF
[2017-04-24] MEDS: INSULIN ASPART SUPPLEMENTAL SCALE SQ SCH ×4 (06:11→20:21)
[2017-04-24 07:35] LABS: BANDS 1 % (0-6); EOSINOPHILS 1 % (0-4); METAMYELOCYTES 2 % (0-1); NEUTROPHIL # MANUAL DIFF 12.3 TH/MM3 (1.8-7.7); POLYS (SEG NEUTROPHILS) 88 % (16-70); WBC DIFF SAMPLE 100
[2017-04-24 07:37] LABS: ACANTHOCYTES OCC (NORMAL)
[2017-04-24 07:38] LABS: PLATELET ESTIMATE SMEAR NORMAL (NORMAL); PLATELET MORPHOLOGY NORMAL (NORMAL); SCAN/DIFF FINAL DIFF MANUAL
[2017-04-24] MEDS: SODIUM CHLOR 0.9% 1000 ML INJ 1,000 ML IV SCH ×2 (09:00→18:15)
[2017-04-24] MEDS: amLODIPine BESYLATE 5 MG TAB PO SCH (09:24)
[2017-04-24] MEDS: CILOSTAZOL 100 MG TAB PO SCH ×2 (09:24→20:06)
[2017-04-24] MEDS: DOCUSATE SODIUM 50 MG/SENNA 8.6 MG TAB PO SCH ×2 (09:24→20:06)
[2017-04-24] MEDS: PANTOPRAZOLE SOD 40 MG DELAYED RELEASE TAB PO SCH (09:24)
[2017-04-24] MEDS: MULTIVITAMIN TAB PO SCH (09:24)
[2017-04-24] MEDS: FERROUS SULFATE 325 MG (65 MG ELEMENTAL IRON) TAB PO SCH ×3 (09:24→18:14)
[2017-04-24] MEDS: ASCORBIC ACID 500 MG TAB PO SCH ×2 (09:25→20:06)
[2017-04-24] MEDS: FINASTERIDE 5 MG TAB PO SCH (09:25)
--- NOTE | 2017-04-24 09:25 | HHI.PR ---
Subjective Subjective Notes Resting in bed Concerned about RIGHT knee pain Reports his dentures were broken so its hard for him to eat hard foods but did eat breakfast without any issues Objective Vitals/I&O Vital Signs Date Time Temp Pulse Resp B/P Pulse Ox O2 Delivery O2 Flow Rate FiO2 04/24/17 08:00 96.9 82 16 172/79 96 04/22/17 18:15 Room Air Labs Laboratory Tests Test 04/23/17 04/23/17 04/24/17 13:55 19:40 04:29 White Blood Count 14.6 13.5 Red Blood Count 2.79 2.78 Hemoglobin 7.5 7.6 Hematocrit 22.9 22.7 Mean Corpuscular Volume 82.3 81.6 Mean Corpuscular Hemoglobin 27.0 27.5 Mean Corpuscular Hemoglobin 32.8 33.6 Concent Red Cell Distribution Width 14.5 14.6 Platelet Count 358 377 Mean Platelet Volume 6.8 7.0 Neutrophils (%) (Auto) 81.7 79.5 Lymphocytes (%) (Auto) 6.8 7.4 Monocytes (%) (Auto) 8.1 9.1 Eosinophils (%) (Auto) 2.9 3.4 Basophils (%) (Auto) 0.5 0.6 Neutrophils # (Auto) 12.0 10.7 Lymphocytes # (Auto) 1.0 1.0 Monocytes # (Auto) 1.2 1.2 Eosinophils # (Auto) 0.4 0.5 Basophils # (Auto) 0.1 0.1 CBC Comment AUTO DIFF AUTO DIFF Differential Comment AUTO DIFF FINAL DIFF CONFIRMED MANUAL Platelet Estimate HIGH NORMAL Platelet Morphology Comment NORMAL NORMAL Red Cell Morphology Comment NORMAL Sodium Level 136 138 Potassium Level 3.7 3.7 Chloride Level 100 102 Carbon Dioxide Level 24.5 25.2 Anion Gap 12 11 Blood Urea Nitrogen 30 24 Creatinine 1.59 1.54 Estimat Glomerular Filtration 42 44 Rate Random Glucose 151 81 Calcium Level 7.8 8.0 Stool C. difficile Toxin (PCR) NEGATIVE Stl C. difficile Toxin PRESUMPTIVE Epiderm 027 NEGATIVE Differential Total Cells 100 Counted Neutrophils % (Manual) 88 Band Neutrophils % 1 Lymphocytes % 2 Monocytes % 6 Eosinophils % 1 Neutrophils # (Manual) 12.3 Metamyelocytes 2 Acanthocytes OCC Date/Time Procedure Status Source Growth 04/23/17 19:40 Cryptosporidium Exam Received Stool Stool Pending 5/29/17 19:40 Giardia Antigen (JOHN) Received Stool Stool Pending 04/22/17 14:30 Aerobic Blood Culture - Preliminary Resulted Blood Peripheral NO GROWTH IN 1 DAY 04/22/17 14:30 Anaerobic Blood Culture - Preliminary Resulted Blood Peripheral NO GROWTH IN 1 DAY Cardiovascular: Regular Lungs: Clear Abdomen: Non-distended, Non-tender Extremities: No edema Narrative Exam RIGHT knee--- no edema; no obvious injury A/P Assessment and Plan 81 year old male with mild ileus vs gastroenteritis -Tolerating heart healthy diet---will change to soft diet due to broken dentures -+BM -OOB and mobilize as tolerated -No surgical plans at this time -GS will sign off; please call with questions Moon Hanson April 24, 2017 09:25
[2017-04-24] MEDS: oxyCODONE/ACETAMINOPHEN 5 MG/325 MG TAB PO PRN ×3 (11:11→20:23)
--- NOTE | 2017-04-24 12:45 | HHI.IDPN ---
Note Infectious Disease Note Patient feels a lot better. Afebrile. Eating lunch. Alert. No diarrhea. C. diff is negative. Presented 04/22 with nausea and vomiting and diarrhea. The patient is afebrile. PAST MEDICAL HISTORY 1. Hypertension. 2. Diabetes mellitus. 3. Gastroesophageal reflux disease. 4. Subdural hematoma. 5. Right hip replacement. 6. Cholecystectomy. 7. Right subdural hematoma. ALLERGIES PENICILLIN. ANTIBIOTICS: 1. Ciprofloxacin. 2. Metronidazole. OBJECTIVE. Vital Signs Date Time Temp Pulse Resp B/P Pulse Ox O2 Delivery O2 Flow Rate FiO2 04/24/17 08:00 96.9 82 16 172/79 96 04/24/17 04:00 97.9 74 20 151/80 96 04/24/17 00:00 98.0 80 20 149/78 94 04/23/17 20:10 87 04/23/17 20:00 98.9 86 18 166/85 97 04/23/17 16:00 97.8 95 18 157/70 90 04/23/17 16:00 17 04/23/17 04/23/17 04/24/17 15:00 23:00 07:00 Intake Total 1963 ml 757 ml 1030 ml Output Total 500 ml 600 ml 450 ml Balance 1463 ml 157 ml 580 ml Intake Oral 180 ml 480 ml 220 ml IV Total 1783 ml 277 ml 810 ml Output Urine Total 500 ml 600 ml 450 ml # Bowel Movements 2 0 0 Laboratory Tests Test 04/22/17 04/23/17 04/24/17 14:25 13:55 04:29 White Blood Count 21.3 TH/MM3 14.6 TH/MM3 13.5 TH/MM3 Red Blood Count 3.18 MIL/MM3 2.79 MIL/MM3 2.78 MIL/MM3 Hemoglobin 8.9 GM/DL 7.5 GM/DL 7.6 GM/DL Hematocrit 26.0 % 22.9 % 22.7 % Mean Corpuscular Volume 81.8 FL 82.3 FL 81.6 FL Mean Corpuscular Hemoglobin 28.0 PG 27.0 PG 27.5 PG Mean Corpuscular Hemoglobin 34.2 % 32.8 % 33.6 % Concent Red Cell Distribution Width 14.5 % 14.5 % 14.6 % Platelet Count 474 TH/MM3 358 TH/MM3 377 TH/MM3 Mean Platelet Volume 6.9 FL 6.8 FL 7.0 FL Neutrophils (%) (Auto) 84.5 % 81.7 % 79.5 % Lymphocytes (%) (Auto) 5.6 % 6.8 % 7.4 % Monocytes (%) (Auto) 8.0 % 8.1 % 9.1 % Eosinophils (%) (Auto) 1.5 % 2.9 % 3.4 % Basophils (%) (Auto) 0.4 % 0.5 % 0.6 % Neutrophils # (Auto) 18.0 TH/MM3 12.0 TH/MM3 10.7 TH/MM3 Lymphocytes # (Auto) 1.2 TH/MM3 1.0 TH/MM3 1.0 TH/MM3 Monocytes # (Auto) 1.7 TH/MM3 1.2 TH/MM3 1.2 TH/MM3 Eosinophils # (Auto) 0.3 TH/MM3 0.4 TH/MM3 0.5 TH/MM3 Basophils # (Auto) 0.1 TH/MM3 0.1 TH/MM3 0.1 TH/MM3 CBC Comment AUTO DIFF AUTO DIFF AUTO DIFF Differential Comment AUTO DIFF AUTO DIFF FINAL DIFF CONFIRMED CONFIRMED MANUAL Platelet Estimate HIGH HIGH NORMAL Platelet Morphology Comment NORMAL NORMAL NORMAL Red Cell Morphology Comment NORMAL Differential Total Cells 100 Counted Neutrophils % (Manual) 88 % Band Neutrophils % 1 % Lymphocytes % 2 % Monocytes % 6 % Eosinophils % 1 % Neutrophils # (Manual) 12.3 TH/MM3 Metamyelocytes 2 % Acanthocytes OCC Laboratory Tests Test 04/22/17 04/22/17 04/22/17 04/22/17 14:25 14:30 17:20 20:00 Sodium Level 144 MEQ/L Potassium Level 3.5 MEQ/L Chloride Level 102 MEQ/L Carbon Dioxide Level 27.0 MEQ/L Anion Gap 15 MEQ/L Blood Urea Nitrogen 36 MG/DL Creatinine 1.88 MG/DL Estimat Glomerular Filtration 35 ML/MIN Rate Random Glucose 52 MG/DL Calcium Level 9.8 MG/DL Total Bilirubin 0.2 MG/DL Aspartate Amino Transf 21 U/L (AST/SGOT) Alanine Aminotransferase 12 U/L (ALT/SGPT) Alkaline Phosphatase 200 U/L Total Protein 7.3 GM/DL Albumin 2.5 GM/DL Lipase 142 U/L Lactic Acid Level 3.0 mmol/L 2.0 mmol/L 1.3 mmol/L Test 04/23/17 04/24/17 13:55 04:29 Sodium Level 136 MEQ/L 138 MEQ/L Potassium Level 3.7 MEQ/L 3.7 MEQ/L Chloride Level 100 MEQ/L 102 MEQ/L Carbon Dioxide Level 24.5 MEQ/L 25.2 MEQ/L Anion Gap 12 MEQ/L 11 MEQ/L Blood Urea Nitrogen 30 MG/DL 24 MG/DL Creatinine 1.59 MG/DL 1.54 MG/DL Estimat Glomerular Filtration 42 ML/MIN 44 ML/MIN Rate Random Glucose 151 MG/DL 81 MG/DL Calcium Level 7.8 MG/DL 8.0 MG/DL Microbiology Date/Time Procedure Status Source Growth 04/22/17 14:25 Aerobic Blood Culture - Preliminary Resulted Blood Peripheral NO GROWTH IN 2 DAYS 04/22/17 14:25 Anaerobic Blood Culture - Preliminary Resulted Blood Peripheral NO GROWTH IN 2 DAYS 04/22/17 14:30 Aerobic Blood Culture - Preliminary Resulted Blood Peripheral NO GROWTH IN 2 DAYS 04/22/17 14:30 Anaerobic Blood Culture - Preliminary Resulted Blood Peripheral NO GROWTH IN 2 DAYS 04/23/17 19:40 Cryptosporidium Exam Received Stool Stool Pending 04/23/17 19:40 Giardia Antigen (JOHN) Received Stool Stool Pending PHYSICAL EXAMINATION GENERAL: No acute distress. He is awake alert and oriented. HEENT: No icterus. Oropharynx moist mucosa without lesions. NECK: Supple without adenopathy. LUNGS: Clear to auscultation. HEART: Regular rate and rhythm without murmurs, rubs or gallops. ABDOMEN: Bowel sounds present, soft, nontender. No masses palpable. EXTREMITIES: No clubbing or cyanosis or edema. Left hip incision lateral has emile in place and is clean and has no erythema or drainage. NEURO: Nonfocal. SKIN: No rash. PSYCHE: The patient is calm and cooperative. IMPRESSION 1. Sepsis based on presenting features of leukocytosis, tachycardia, elevated lactic acid level. 2. Probable ileus. Can contribute to Elevated WBC and lactic acid elevation. 3. Possible gastroenteritis. 4. Chronic kidney disease stage III. 5. Abnormal chest x-ray. No clinical evidence of pneumonia. Clinically stable. RECOMMENDATIONS 1. Continue ciprofloxacin PO. 2. Stop metronidazole. 3. Follow stool ova and parasite test. 4. Follow blood cultures. 5. Monitor temperature. 6. Monitor white blood cell count. If WBC stays down or normalized and blood culture is negative 3 days he can be discharged with Cipro. Kye Cronin MD April 24, 2017 12:44
--- NOTE | 2017-04-24 17:20 | HHI.PR ---
Subjective Remarks In the bed, appears in nad at this time. Improved. Says he is not having much cough. He is not sob. He feels very tired. denies cp, sob, n/v/d/c. Pain in his buttoks is better controlled. He has some abdominal pain. Objective Vitals Vital Signs Date Time Temp Pulse Resp B/P Pulse Ox O2 Delivery O2 Flow Rate FiO2 04/24/17 16:00 97.0 91 18 151/69 96 04/24/17 12:00 97.4 86 18 164/74 98 04/24/17 08:00 96.9 82 16 172/79 96 04/24/17 04:00 97.9 74 20 151/80 96 04/24/17 00:00 98.0 80 20 149/78 94 04/23/17 20:10 87 04/23/17 20:00 98.9 86 18 166/85 97 I/O 04/23/17 04/23/17 04/23/17 04/24/17 04/24/17 04/24/17 07:00 15:00 23:00 07:00 15:00 23:00 Intake Total 480 ml 1963 ml 757 ml 1030 ml 800 ml Output Total 200 ml 500 ml 600 ml 450 ml 1000 ml Balance 280 ml 1463 ml 157 ml 580 ml -200 ml Intake Oral 480 ml 180 ml 480 ml 220 ml 800 ml IV Total 1783 ml 277 ml 810 ml Output Urine Total 200 ml 500 ml 600 ml 450 ml 1000 ml # Voids 1 # Bowel Movements 0 2 0 0 0 Result Diagram: 04/24/17 0429 04/24/17 0429 Imaging Last Impressions Chest X-Ray 04/22/17 1405 Signed Impressions: Service Date/Time: Saturday, April 22, 2017 14:28 - CONCLUSION: Underinflated examination with bibasilar airspace opacity representing either atelectasis or mild consolidation. Vinh Lane MD Head CT 04/22/17 0000 Signed Impressions: Service Date/Time: Saturday, April 22, 2017 15:30 - CONCLUSION: 1. Subacute subdural hematoma involving the right posterior temporal region measuring 6 mm and the right frontal region measuring 5 mm. 2. Diffuse periventricular and subcortical white matter small vessel ischemic changes bilaterally. 3. Diffuse cerebral atrophy. 4. No acute hemorrhage, midline shift or significant mass effect. Jacoby Bazan MD Abdomen/Pelvis CT 04/22/17 0000 Signed Impressions: Service Date/Time: Saturday, April 22, 2017 15:33 - CONCLUSION: 1. There is mild dilatation of the small bowel suggesting small bowel ileus or partial small bowel obstruction. 2. Uncomplicated colonic diverticulosis. 3. Enlarged prostate. 4. Tiny calcifications within the right kidney consistent with nonobstructing calculi versus vascular calcifications. 5. 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 6. Chronic moderate compression deformity involving the T12 vertebral body. 7. Left adrenal nodule measuring 2.5 x 1.5 cm consistent with probable adrenal adenoma. 8. Hiatal hernia. Jacoby Bazan MD Objective Remarks GENERAL: This is a well-nourished, well-developed patient, in no apparent distress. SKIN: Pressure sacral wound present on admission. Bilateral heel wounds present on admission. No rashes, ecchymoses or lesions. Cool and dry. CARDIOVASCULAR: Regular rate and rhythm without murmurs, gallops, or rubs. RESPIRATORY: Clear to auscultation. Breath sounds equal bilaterally. No wheezes , rales, or rhonchi. GASTROINTESTINAL: Abdomen soft, non-tender, nondistended. No hepato-splenomegaly , or palpable masses. No guarding. MUSCULOSKELETAL: No LE edema. NEUROLOGICAL: Awake and alert. Cranial nerves II through XII intact. Motor and sensory grossly within normal limits. Normal speech. A/P Assessment and Plan Very pleasant 81 yo male from [facility] with PMH of HTN, DM, GERD, recent subdural hematoma and hip replacement surgery with: Severe sepsis (leukocytosis, tachycardia, LA> 2 , [place], encephalopathy, source bilat PNA, GI source- gastroenteritis) on admission. Penicillin allergy. Poss Partial Small Anjana Obstruction [place] Sacral wound present on admission. Bilateral heel wounds present on admission. Wound care consult, appreciate recommendations. Apply silprovidone-iodine bid to bilat heel wounds bid and live open to air. Bilateral heel raiser boots . Specialty bed . WBC improved. Received 3L bolus NS in the ED. Monitor BP. Continue IVF Blood cx pending. Urine cx Received vancomycin and azithromycin IV in the ED. Patient is allergic to penicillin CXR reviewed bibasilar infiltrates. Continue ciprofloxacin only per ID . WBC improved. If WBC continues to improve, the patient can be DC on cipro Consult ID specialist, following Consult gen surg Repeat LA back to normal Monitor CBC and BMP. Monitor WBC, monitor closely kidney indices HTN, DM, GERD, recent subdural hematoma and hip replacement surgery. appears stable at this time. Monitor VS. Monitor clinically. CT in the ED reviewed, no acute changes. DVT ppx lovenox, SCD/TEDs Discussed Condition With patient, nurse, case management Sahara Masterson MD April 24, 2017 17:20
[2017-04-24] MEDS: ENOXAPARIN SODIUM 40 MG/0.4 ML SYRINGE SQ SCH (18:14)
[2017-04-24] MEDS: CIPROFLOXACIN 500 MG TAB PO SCH (20:06)
[2017-04-24] MEDS: PRAVASTATIN SOD 40 MG TAB PO SCH (20:06)
[2017-04-25] VITALS: BP 171/70; PULSE 81; RESP 16; TEMP 97.4; O2SAT 95
[2017-04-25 04:00] VITALS: BP 152/68; PULSE 85; RESP 18; TEMP 98.9; O2SAT 94
[2017-04-25] MEDS: SODIUM CHLOR 0.9% 1000 ML INJ 1,000 ML IV SCH ×2 (05:13→11:30)
[2017-04-25 05:15] LABS: AUTOMATED NEUTROPHIL # 11.1 TH/MM3 (1.8-7.7); BASOPHIL % 0.2 % (0.0-2.0); EOSINOPHIL # 0.5 TH/MM3 (0-0.4); EOSINOPHIL % 3.6 % (0.0-4.0); HEMATOCRIT 23.6 % (39.0-51.0); LYMPH % 6.8 % (9.0-44.0); LYMPHOCYTE # 0.9 TH/MM3 (1.0-4.8); MEAN CELL VOLUME 82.2 FL (80.0-100.0); MEAN CORPUSCULAR HEMOGLOBIN 26.5 PG (27.0-34.0); MEAN CORPUSCULAR HGB CONC 32.3 % (32.0-36.0); MONO % 9.5 % (0.0-8.0); NEUT % 79.9 % (16.0-70.0); PLATELET COUNT 343 TH/MM3 (150-450); RED BLOOD COUNT 2.87 MIL/MM3 (4.50-5.90); RED CELL DISTRIBUTION WIDTH 14.2 % (11.6-17.2); WHITE BLOOD COUNT 13.9 TH/MM3 (4.0-11.0)
[2017-04-25 05:25] LABS: HEMO FLAGS AUTO DIFF
[2017-04-25 05:34] LABS: BICARBONATE 23.5 MEQ/L (21.0-32.0); POTASSIUM 3.4 MEQ/L (3.5-5.1)
[2017-04-25 05:55] LABS: SCAN/DIFF AUTO DIFF CONFIRMED
[2017-04-25] MEDS: INSULIN ASPART SUPPLEMENTAL SCALE SQ SCH ×3 (06:05→16:06)
[2017-04-25] MEDS: ASCORBIC ACID 500 MG TAB PO SCH (07:59)
[2017-04-25] MEDS: DOCUSATE SODIUM 50 MG/SENNA 8.6 MG TAB PO SCH (07:59)
[2017-04-25] MEDS: CILOSTAZOL 100 MG TAB PO SCH (07:59)
[2017-04-25] MEDS: MULTIVITAMIN TAB PO SCH (07:59)
[2017-04-25 08:00] VITALS: BP 155/70; PULSE 84; RESP 16; TEMP 99.1; O2SAT 95
[2017-04-25] MEDS: PANTOPRAZOLE SOD 40 MG DELAYED RELEASE TAB PO SCH (08:00)
[2017-04-25] MEDS: FINASTERIDE 5 MG TAB PO SCH (08:00)
[2017-04-25] MEDS: amLODIPine BESYLATE 5 MG TAB PO SCH (08:00)
[2017-04-25] MEDS: CIPROFLOXACIN 500 MG TAB PO SCH (08:00)
[2017-04-25] MEDS: FERROUS SULFATE 325 MG (65 MG ELEMENTAL IRON) TAB PO SCH ×3 (08:00→15:56)
[2017-04-25] MEDS: oxyCODONE/ACETAMINOPHEN 5 MG/325 MG TAB PO PRN ×2 (08:07→15:55)
--- NOTE | 2017-04-25 11:20 | HHI.PR ---
Subjective Remarks Patient in nad. Says she has some pain in his buttoks at the wound site . No fever or chills. No cough. Denies abd pain . No n/v/d/c. Objective Vitals Vital Signs Date Time Temp Pulse Resp B/P Pulse Ox O2 Delivery O2 Flow Rate FiO2 04/25/17 08:00 99.1 84 16 155/70 95 04/25/17 04:00 98.9 85 18 152/68 94 04/25/17 00:00 97.4 81 16 171/70 95 04/24/17 20:20 88 04/24/17 20:00 98.2 90 17 143/70 93 04/24/17 16:00 97.0 91 18 151/69 96 04/24/17 12:00 97.4 86 18 164/74 98 I/O 04/24/17 04/24/17 04/24/17 04/25/17 04/25/17 04/25/17 07:00 15:00 23:00 07:00 15:00 23:00 Intake Total 1030 ml 800 ml 433 ml 1065 ml Output Total 450 ml 1000 ml 800 ml 250 ml Balance 580 ml -200 ml -367 ml 815 ml Intake Oral 220 ml 800 ml 300 ml 350 ml IV Total 810 ml 133 ml 715 ml Output Urine Total 450 ml 1000 ml 800 ml 250 ml # Voids 1 2 # Bowel Movements 0 0 0 Result Diagram: 04/25/17 0436 04/25/17 0436 Imaging Last Impressions Chest X-Ray 04/22/17 1405 Signed Impressions: Service Date/Time: Saturday, April 22, 2017 14:28 - CONCLUSION: Underinflated examination with bibasilar airspace opacity representing either atelectasis or mild consolidation. Vinh Lane MD Head CT 04/22/17 0000 Signed Impressions: Service Date/Time: Saturday, April 22, 2017 15:30 - CONCLUSION: 1. Subacute subdural hematoma involving the right posterior temporal region measuring 6 mm and the right frontal region measuring 5 mm. 2. Diffuse periventricular and subcortical white matter small vessel ischemic changes bilaterally. 3. Diffuse cerebral atrophy. 4. No acute hemorrhage, midline shift or significant mass effect. Jacoby Bazan MD Abdomen/Pelvis CT 04/22/17 0000 Signed Impressions: Service Date/Time: Saturday, April 22, 2017 15:33 - CONCLUSION: 1. There is mild dilatation of the small bowel suggesting small bowel ileus or partial small bowel obstruction. 2. Uncomplicated colonic diverticulosis. 3. Enlarged prostate. 4. Tiny calcifications within the right kidney consistent with nonobstructing calculi versus vascular calcifications. 5. 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 6. Chronic moderate compression deformity involving the T12 vertebral body. 7. Left adrenal nodule measuring 2.5 x 1.5 cm consistent with probable adrenal adenoma. 8. Hiatal hernia. Jacoby Bazan MD Objective Remarks GENERAL: This is a well-nourished, well-developed patient, in no apparent distress. SKIN: Pressure sacral wound present on admission. Bilateral heel wounds present on admission. No rashes, ecchymoses or lesions. Cool and dry. CARDIOVASCULAR: Regular rate and rhythm without murmurs, gallops, or rubs. RESPIRATORY: Clear to auscultation. Breath sounds equal bilaterally. No wheezes , rales, or rhonchi. GASTROINTESTINAL: Abdomen soft, non-tender, nondistended. No hepato-splenomegaly , or palpable masses. No guarding. MUSCULOSKELETAL: No LE edema. NEUROLOGICAL: Awake and alert. Cranial nerves II through XII intact. Motor and sensory grossly within normal limits. Normal speech. A/P Assessment and Plan Very pleasant 81 yo male from [facility] with PMH of HTN, DM, GERD, recent subdural hematoma and hip replacement surgery with: Severe sepsis (leukocytosis, tachycardia, LA> 2 , [place], encephalopathy, source bilat PNA, GI source- gastroenteritis) on admission. Penicillin allergy. Poss Partial Small Anjana Obstruction [place] Sacral wound present on admission. Bilateral heel wounds present on admission. Wound care consult, appreciate recommendations. Apply silprovidone-iodine bid to bilat heel wounds bid and live open to air. Bilateral heel raiser boots . Specialty bed . WBC improved. Received 3L bolus NS in the ED. Monitor BP. Continue IVF Blood cx pending. Urine cx Received vancomycin and azithromycin IV in the ED. Patient is allergic to penicillin CXR reviewed bibasilar infiltrates. Continue ciprofloxacin only per ID . WBC improved. If WBC continues to improve, the patient can be DC on cipro Consult ID specialist, following Consult gen surg Repeat LA back to normal Monitor CBC and BMP. Monitor WBC, monitor closely kidney indices HTN, DM, GERD, recent subdural hematoma and hip replacement surgery. appears stable at this time. Monitor VS. Monitor clinically. CT in the ED reviewed, no acute changes. DVT ppx lovenox, SCD/TEDs Discussed Condition With patient, nurse, case management Improving. WBc continue to improve. Plan to DC back to SNF Sahara Masterson MD April 25, 2017 11:20
[2017-04-25] MEDS ORDERED: CIPR500T2 PO (11:23)
[2017-04-25] MEDS ORDERED: PERC5TAB12 PO (11:24)
--- NOTE | 2017-04-25 11:24 | HHI.DS ---
Discharge Summary Admission Date April 22, 2017 at 17:02 Discharge Date: Apr 27, 2017 Admitting Diagnosis sepsis, pneumonia, ileus vs partial bowel obstruction (1) Sepsis ICD Code: A41.9 Diagnosis: Principal (2) Pneumonia ICD Code: J18.9 (3) Partial small bowel obstruction ICD Code: K56.69 Diagnosis: Principal (4) Acute kidney injury ICD Code: N17.9 Diagnosis: Principal Procedures none Brief History - From Admission Very pleasant 81 yo male from [facility] with PMH of HTN, DM, GERD, recent subdural hematoma and hip replacement surgery presents to the ED for evaluation of fever , nausea and diarrhea. Also complaints of abdominal pain. Patient comes here from a long term. Patient apparently was released from [facility] for a month earlier this month to an ALS secondary to subarachnoid hemorrhage and a right hip fracture that needed surgery. Patient since yesterday has been acting different per staff and they noticed that he had a low-grade fever as well as he was having a lot of nausea and vomiting and diarrhea. Patient was complaining of abdominal pain at the time. He was sent here for evaluation. He denies any recent falls or injuries. He denies significant blood thinners. He does have a history of diabetes. Patient does appear to be aware of the situation and is able to give him most of the history. He has a history of the ulcer to his left heel as well as possibly on his sacral area. Per her report apparently patient does have difficulty swallowing secondary to the trauma but this is chronic. Per his been throwing up which is new. He states that his pain currently 6 out of 10 mainly on the abdomen in the hip. Denies any recent falls or trauma. No other complaints at this time. He does appear to be tachycardic and he was found to have a low-grade fever by ambulance. Patient comes here also with blood work that was recently performed that showed a leukocytosis. CBC/BMP: 04/25/17 0436 04/25/17 0436 Significant Findings Laboratory Tests Test 04/22/17 04/22/17 04/22/17 04/23/17 14:25 14:30 18:00 13:55 White Blood Count 21.3 TH/MM3 14.6 TH/MM3 (4.0-11.0) (4.0-11.0) Red Blood Count 3.18 MIL/MM3 2.79 MIL/MM3 (4.50-5.90) (4.50-5.90) Hemoglobin 8.9 GM/DL 7.5 GM/DL (13.0-17.0) (13.0-17.0) Hematocrit 26.0 % 22.9 % (39.0-51.0) (39.0-51.0) Platelet Count 474 TH/MM3 (150-450) Mean Platelet Volume 6.9 FL 6.8 FL (7.0-11.0) (7.0-11.0) Neutrophils (%) (Auto) 84.5 % 81.7 % (16.0-70.0) (16.0-70.0) Lymphocytes (%) (Auto) 5.6 % 6.8 % (9.0-44.0) (9.0-44.0) Neutrophils # (Auto) 18.0 TH/MM3 12.0 TH/MM3 (1.8-7.7) (1.8-7.7) Monocytes # (Auto) 1.7 TH/MM3 1.2 TH/MM3 (0-0.9) (0-0.9) Platelet Estimate HIGH (NORMAL) HIGH (NORMAL) Prothrombin Time 12.0 SEC (9.8-11.6) Activated Partial 32.8 SEC Thromboplast Time (24.3-30.1) Blood Urea Nitrogen 36 MG/DL (7-18) 30 MG/DL (7-18) Creatinine 1.88 MG/DL 1.59 MG/DL (0.60-1.30) (0.60-1.30) Estimat Glomerular Filtration 35 ML/MIN (>89) 42 ML/MIN (>89) Rate Random Glucose 52 MG/DL 151 MG/DL (74-106) (74-106) Alkaline Phosphatase 200 U/L (45-117) Albumin 2.5 GM/DL (3.4-5.0) Lactic Acid Level 3.0 mmol/L (0.4-2.0) Urine Protein 100 mg/dL (NEG-TRACE) Urine Leukocyte Esterase TRACE (NEG) Urine Mucus FEW /lpf (OCC) Monocytes (%) (Auto) 8.1 % (0.0-8.0) Calcium Level 7.8 MG/DL (8.5-10.1) Test 04/24/17 04/25/17 04:29 04:36 White Blood Count 13.5 TH/MM3 13.9 TH/MM3 (4.0-11.0) (4.0-11.0) Red Blood Count 2.78 MIL/MM3 2.87 MIL/MM3 (4.50-5.90) (4.50-5.90) Hemoglobin 7.6 GM/DL 7.6 GM/DL (13.0-17.0) (13.0-17.0) Hematocrit 22.7 % 23.6 % (39.0-51.0) (39.0-51.0) Neutrophils (%) (Auto) 79.5 % 79.9 % (16.0-70.0) (16.0-70.0) Lymphocytes (%) (Auto) 7.4 % 6.8 % (9.0-44.0) (9.0-44.0) Monocytes (%) (Auto) 9.1 % (0.0-8.0) 9.5 % (0.0-8.0) Neutrophils # (Auto) 10.7 TH/MM3 11.1 TH/MM3 (1.8-7.7) (1.8-7.7) Monocytes # (Auto) 1.2 TH/MM3 1.3 TH/MM3 (0-0.9) (0-0.9) Eosinophils # (Auto) 0.5 TH/MM3 0.5 TH/MM3 (0-0.4) (0-0.4) Neutrophils % (Manual) 88 % (16-70) Lymphocytes % 2 % (9-44) Neutrophils # (Manual) 12.3 TH/MM3 (1.8-7.7) Metamyelocytes 2 % (0-1) Blood Urea Nitrogen 24 MG/DL (7-18) 21 MG/DL (7-18) Creatinine 1.54 MG/DL 1.39 MG/DL (0.60-1.30) (0.60-1.30) Estimat Glomerular Filtration 44 ML/MIN (>89) 49 ML/MIN (>89) Rate Calcium Level 8.0 MG/DL 8.2 MG/DL (8.5-10.1) (8.5-10.1) Mean Corpuscular Hemoglobin 26.5 PG (27.0-34.0) Mean Platelet Volume 6.9 FL (7.0-11.0) Lymphocytes # (Auto) 0.9 TH/MM3 (1.0-4.8) Potassium Level 3.4 MEQ/L (3.5-5.1) Random Glucose 72 MG/DL (74-106) Imaging Reported Meds & Active Scripts Active Percocet (Oxycodone-Acetaminophen) 5-325 mg Tab 1 Tab PO Q4H PRN Ciprofloxacin (Ciprofloxacin HCl) 500 Mg Tab 500 Mg PO Q12HR Reported Zofran (Ondansetron HCl) 4 Mg Tab 4 Mg PO Q4HR PRN Milk of Magnesia Liq (Magnesium Hydroxide) 400 Mg/5 Ml Susp 30 Ml PO HS PRN Hydralazine HCl 10 Mg Tablet 10 Mg PO Q6HR PRN Enema Disposable (Sodium Phosphates) 1 Gia Gia 1 Applic RECTAL DAILY PRN Dulcolax Supp (Bisacodyl) 10 Mg Supp 10 Mg RECTAL DAILY PRN Guaifenesin DM Liq (Guaifenesin-Dextromethorphan Liq) 10-100 Mg/5 Ml Liq 10 Ml PO Q4H PRN Citroma Liq (Magnesium Citrate) 300 Ml Liq 300 Ml PO DAILY PRN Tylenol (Acetaminophen) 325 Mg Tab 650 Mg PO Q4H PRN Humalog Inj (Insulin Human Lispro) 1,000 Unit/10 Ml Vial 3-12 Units SQ ACHS Sliding Scale: 61-150=0 units, initiate hypoglycemic protocol and call MD, 151-200=3 units, 201-250=5 units, 251-300=8 units, 301-350=10 units, 351-400=12 units, > 400 give 10 units and call Metformin (Metformin HCl) 500 Mg Tab 500 Mg PO TID With meals [Folic Acid 1MG] 1 Mg PO TID Ferrous Sulfate DR (Ferrous Sulfate) 325 Mg Tabdr 325 Mg PO TID Vitamin C (Ascorbic Acid) 250 Mg Tab 500 Mg PO BID Lopid (Gemfibrozil) 600 Mg Tab 600 Mg PO BID Take 30 minutes prior to breakfast and dinner Multi Vitamin Daily (Multiple Vitamin) 1 Tab Tab 1 Tab PO DAILY Glipizide 10 Mg Tab 20 Mg PO DAILY Dextrose 5%-NaCl 0.45% Inj (Dextrose-Sodium Chloride Inj) 5%-0.45% 1,000 Ml Bagp 1,000 Ml IV DAILY Vitamin D3 (Cholecalciferol) 5,000 Unit Cap 10,000 Units PO MONTHLY Docusate Sodium 100 Mg Cap 100 Mg PO Q12HR Cilostazol 100 Mg Tab 100 Mg PO BID Zinc Sulfate 220 Mg Cap 220 Mg PO DAILY Thiamine HCl 500 Mg Tablet 500 Mg PO DAILY Januvia (Sitagliptin Phosphate) 100 Mg Tab 100 Mg PO DAILY Omeprazole 40 Mg Cap 40 Mg PO DAILY Lovastatin 40 Mg Tab 40 Mg PO HS Levofloxacin 750 Mg Tablet 750 Mg PO WEEKLY Glipizide 10 Mg Tab 10 Mg PO HS Finasteride 5 Mg Tab 5 Mg PO DAILY Do not crush. Amlodipine (Amlodipine Besylate) 5 Mg Tab 5 Mg PO DAILY PE at Discharge GENERAL: This is a well-nourished, well-developed patient, in no apparent distress. SKIN: Pressure sacral wound present on admission. Bilateral heel wounds present on admission. No rashes, ecchymoses or lesions. Cool and dry. CARDIOVASCULAR: Regular rate and rhythm without murmurs, gallops, or rubs. RESPIRATORY: Clear to auscultation. Breath sounds equal bilaterally. No wheezes , rales, or rhonchi. GASTROINTESTINAL: Abdomen soft, non-tender, nondistended. No hepato-splenomegaly , or palpable masses. No guarding. MUSCULOSKELETAL: No LE edema. NEUROLOGICAL: Awake and alert. Cranial nerves II through XII intact. Motor and sensory grossly within normal limits. Normal speech. Hospital Course Very pleasant 81 yo male from [facility] with PMH of HTN, DM, GERD, recent subdural hematoma and hip replacement surgery with: Severe sepsis (leukocytosis, tachycardia, LA> 2 , [place], encephalopathy, source bilat PNA, GI source- gastroenteritis) on admission. Penicillin allergy. Poss Partial Small Anjana Obstruction- Resolved. [place]. Resolving. Encouraged PO intake. Sacral wound present on admission. Bilateral heel wounds present on admission. Wound care consult, appreciate recommendations. Apply silprovidone-iodine bid to bilat heel wounds bid and live open to air. Bilateral heel raiser boots . Specialty bed . WBC improved. Received 3L bolus NS in the ED. Monitor BP. Continue IVF Blood cx NTD . Urine analysis neg. Stool studies negative. Received vancomycin and azithromycin IV in the ED. Patient is allergic to penicillin CXR reviewed bibasilar infiltrates. Continue ciprofloxacin only per ID . WBC improved. If WBC continues to improve, the patient can be DC on cipro Consult ID specialist, following Consult gen surg, cleared for DC Repeat LA back to normal Monitor CBC and BMP. Monitor WBC, monitor closely kidney indices HTN, DM, GERD, recent subdural hematoma and hip replacement surgery. appears stable at this time. Monitor VS. Monitor clinically. CT in the ED reviewed, no acute changes. DVT ppx lovenox, SCD/TEDs Discussed Condition With patient, nurse, case management Improving. WBC also continue to improve. Cleared by ID for DC. Discharged in stable condition to SNF. To follow up as OP with PCP and consultants. Pt Condition on Discharge: Stable Discharge Disposition: Discharge to SNF Discharge Time: > 30 minutes Discharge Instructions DIET: Follow Instructions for: Heart Healthy Diet Speech Therapy-Diet Recommends: Soft Activities you can perform: Regular-No Restrictions Follow up Referrals: PCP Follow-up - 3-5 Days New Medications: Ciprofloxacin (Ciprofloxacin) 500 Mg Tab 500 MG PO Q12HR infection #14 TAB Continued Medications: Acetaminophen (Tylenol) 325 Mg Tab 650 MG PO Q4H PRN PAIN 1-10 AND/OR FEVER >101F Ref 0 TAB Amlodipine (Amlodipine) 5 Mg Tab 5 MG PO DAILY Blood Pressure Management #30 Ref 0 TAB Ascorbic Acid (Vitamin C) 250 Mg Tab 500 MG PO BID Nutritional Supplement Ref 0 TAB Bisacodyl Supp (Dulcolax Supp) 10 Mg Supp 10 MG RECTAL DAILY PRN IF NO RESULTS FROM MILK OF MAG #12 Ref 0 SUPP Cholecalciferol (Vitamin D3) 5,000 Unit Cap 59539 UNITS PO MONTHLY Nutritional Supplement #1 Ref 0 BOTTLE Cilostazol (Cilostazol) 100 Mg Tab 100 MG PO BID INTERMITTENT CLAUDICATION Ref 0 TAB Dextrose-Sodium Chloride Inj (Dextrose 5%-NaCl 0.45% Inj) 5%-0.45% 1,000 Ml Bagp 1000 ML IV DAILY FLUIDS Docusate Sodium (Docusate Sodium) 100 Mg Cap 100 MG PO Q12HR Constipation #60 Ref [address] (Ferrous Sulfate DR) 325 Mg Tabdr 325 MG PO TID Nutritional Supplement Finasteride (Finasteride) 5 Mg Tab 5 MG PO DAILY Do not crush. Manage Prostate Problems #30 Ref 0 TAB Gemfibrozil (Lopid) 600 Mg Tab 600 MG PO BID Take 30 minutes prior to breakfast and dinner HTN #60 Ref 0 TAB Glipizide (Glipizide) 10 Mg Tab 10 MG PO HS Blood Sugar Management #30 Ref 0 TAB Glipizide (Glipizide) 10 Mg Tab 20 MG PO DAILY Blood Sugar Management #30 Ref 0 TAB Guaifenesin-Dextromethorphan Liq (Guaifenesin DM Liq) 10-100 Mg/5 Ml Liq 10 ML PO Q4H PRN COUGH #1 Ref 0 BOTTLE Hydralazine HCl (Hydralazine HCl) 10 Mg Tablet 10 MG PO Q6HR PRN HYPERTENSION Insulin Lispro (Human) Inj (Humalog Inj) 1,000 Unit/10 Ml Vial 3-12 UNITS SQ ACHS Sliding Scale: 61-150=0 units, initiate hypoglycemic protocol and call MD, 151-200=3 units, 201-250=5 units, 251-300=8 units, 301-350 =10 units, 351-400=12 units, > 400 give 10 units and call MD Blood Sugar Management #1 Ref 0 VIAL Levofloxacin (Levofloxacin) 750 Mg Tablet 750 MG PO WEEKLY Infection Ref 0 TAB Lovastatin (Lovastatin) 40 Mg Tab 40 MG PO HS Cholesterol Management #30 Ref 0 TAB Magnesium Citrate Liq (Citroma Liq) 300 Ml Liq 300 ML PO DAILY PRN IF NO RESULTS FROM ENEMA #1 Ref 0 BOTTLE Magnesium Hydroxide Liq (Milk of Magnesia Liq) 400 Mg/5 Ml Susp 30 ML PO HS PRN IF NO BM IN 3 DAYS #1 Ref 0 BOTTLE Metformin (Metformin) 500 Mg Tab 500 MG PO TID With meals Blood Sugar Management #90 Ref 0 TAB Multiple Vitamin (Multi Vitamin Daily) 1 Tab Tab 1 TAB PO DAILY Nutritional Supplement Omeprazole (Omeprazole) 40 Mg Cap 40 MG PO DAILY #30 Ref 0 CAP Ondansetron (Zofran) 4 Mg Tab 4 MG PO Q4HR PRN NAUSEA OR VOMITING Ref 0 TAB Oxycodone-Acetaminophen (Percocet) 5-325 mg Tab 1 TAB PO Q4H PRN PAIN #15 Ref 0 TAB (This prescription has been renewed) Sitagliptin (Januvia) 100 Mg Tab 100 MG PO DAILY Blood Sugar Management #30 Ref 0 TAB Sodium Phosphates (Enema Disposable) 1 Gia Gia 1 APPLIC RECTAL DAILY PRN IF NO RESULTS FROM DULCOLAX Thiamine HCl (Thiamine HCl) 500 Mg Tablet 500 MG PO DAILY Zinc Sulfate (Zinc Sulfate) 220 Mg Cap 220 MG PO DAILY Nutritional Supplement Ref 0 CAP ([Folic Acid 1MG]) 1 MG PO TID Sahara Masterson MD April 25, 2017 11:24
[2017-04-25 12:00] VITALS: BP 191/81; PULSE 94; RESP 18; TEMP 98.7; O2SAT 96
[2017-04-25] MEDS: hydrALAZINE HCL 10 MG TAB PO PRN (12:32)
[2017-04-25 13:15] VITALS: BP 156/54
[2017-04-25 16:00] VITALS: BP 191/86; PULSE 85; RESP 19; TEMP 97.3; O2SAT 93
[2017-04-25] MEDS: ENOXAPARIN SODIUM 40 MG/0.4 ML SYRINGE SQ SCH (16:00)
== END 2017-04-25 17:58 | DRG 871 ==
LOC: NEPE 13:51 → NEDA 17:02 → N07B 18:59
PROVIDERS: ADMIT Hospitalist; ATTEND Hospitalist
DX: A41.9 Sepsis, unspecified organism (principal); G93.41 Metabolic encephalopathy; N17.9 Acute kidney failure, unspecified; J18.9 Pneumonia, unspecified organism; E11.22 Type 2 diabetes mellitus with diabetic chronic kidney disease; E11.621 Type 2 diabetes mellitus with foot ulcer; K56.7 Ileus, unspecified; L97.429 Non-pressure chronic ulcer of left heel and midfoot with unspecified severity; N18.3 Chronic kidney disease, stage 3 (moderate); G30.9 Alzheimer's disease, unspecified; E86.0 Dehydration; F02.80 Dementia in other diseases classified elsewhere, unspecified severity, without behavioral disturbance, psychotic disturbance, mood disturbance, and anxiety; K21.9 Gastro-esophageal reflux disease without esophagitis; E78.5 Hyperlipidemia, unspecified; K52.9 Noninfective gastroenteritis and colitis, unspecified; I12.9 Hypertensive chronic kidney disease with stage 1 through stage 4 chronic kidney disease, or unspecified chronic kidney disease; R65.20 Severe sepsis without septic shock; Z79.84 Long term (current) use of oral hypoglycemic drugs
CPT/HCPCS: 70450; 71010; 74176; 80048; 80053; 81001; 82948; 83605; 83690; 85007; 85025; 85027; 85610; 85730; 87040; 87328; 87329; 87493; 96361; 96365; 96375; J0456; J0744; J1170; J1650; J1815; J2270; J2405; J3370; J7030; J7050